=== PATIENT | female | born 1945 | race Caucasian/White ===

== ENCOUNTER 2018-09-01 16:50 | Inpatient (IN) | payer MEDICARE, MEDICAID ==
[~2018-09-01] VITALS: Ht 167.6 cm; Wt 89.1 kg
--- NOTE | ~2018-09-01 | PR ---
[place], [place] PROGRESS NOTE NAME: VIKA BANERJEE UNIT #: [id number] ROOM: 315 DOCTOR: VIVIAN ANDERSON CNP BIRTHDATE: [birth year] DOS: 09/05/2018 CHIEF COMPLAINT: "Sometimes I hear them all the time." SUMMARY OF THE VISIT: The patient was interviewed as she sat in the dining room. She was pleasant and cooperative and engaged in conversation with me. The patient reports that her appetite is good and that she has been sleeping well. She denies any visual hallucinations; however, she reports that she hears things sometimes. Staff reports that the patient continues to be paranoid and that she did have visual hallucination last evening. She is exhibiting increased paranoia as the day progressed yesterday. She did sleep last night and has been taking medications as prescribed. MENTAL STATUS EXAMINATION: The patient is alert and oriented to person and place. She was pleasant and cooperative with me. No damaris or hypomania noted. No delusions noted, some mild paranoia noted. No auditory or visual hallucinations noted at this time. The patient's mood was calm. Her affect was appropriate. PLAN: I will increase the patient's Abilify to 15 mg daily in order to hopefully improve the paranoia symptoms as well as the visual hallucinations that she was experiencing. We will monitor the patient for side effects. We will also monitor for effectiveness of the medication. We will continue to encourage the patient to participate in individual and hwite milieu activity. Continue fall and safety precautions. Plan is to return the patient to the least restrictive environment when she is considered psychiatrically stable. Vivian Anderson CNP CM:PNTRANS 1 34 VIVIAN ANDERSON CNP 09/05/182033 interface
--- NOTE | ~2018-09-01 | PR ---
[place], [place] PROGRESS NOTE NAME: VIKA BANERJEE UNIT #: [id number] ROOM: 315 DOCTOR: CATHRYN LYLE MD BIRTHDATE: [birth year] DOS: 09/03/2018 CHIEF COMPLAINT: "Morning." SUMMARY OF THE VISIT: The patient was interviewed or attempted to be interviewed while she was eating her breakfast. As I approached, she made eye contact and wished me good morning, but then she went about eating her breakfast and did not respond to any more of my questions. She was very intent on eating her breakfast and was pleasant for the most part. Nurses report some episodic behaviors, but they do seem to be trending toward improvement. There is no sedation, somnolence, extrapyramidal symptoms or tardive dyskinesia. MENTAL STATUS: She is alert and oriented to self. Mood does seem to be strongly trending towards euthymia. Affect is much more appropriate. There is no damaris or hypomania. There is no gross psychosis noted. Short term memory is very poor and her ability to process is limited. PLAN: I will go ahead and increase her Abilify from 5 to 10 mg at bedtime as it augments the effectiveness of the antidepressant and also stabilizes her mood. We will engage in individual and white milieu activity, returning to the least restrictive environment when psychiatrically stable. CATHRYN LYLE MD CM:PNTRANS [id number] CATHRYN LYLE MD 09/04/18 0049 interface
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
--- NOTE | ~2018-09-01 | PN ---
[place], [place] PROGRESS NOTE NAME: VIKA BANERJEE UNIT #: [id number] ROOM: 315 DOCTOR: CATHRYN LYLE MD BIRTHDATE: [birth year] DATE: 09/09/18 ADDENDUM: Resident note reviewed. Agree with observations, recommendations, and overall treatment plan. CATHRYN LYLE MD CM:PNTRANS 132 132 CATHRYN LYLE MD 09/29/18 1328 LUIS REYNA MIS.LLR
--- NOTE | ~2018-09-01 | PR ---
[place], [place] PROGRESS NOTE NAME: VIKA BANERJEE UNIT #: [id number] ROOM: 315 DOCTOR: CATHRYN LYLE MD BIRTHDATE: [birth year] DOS: 09/06/2018 CHIEF COMPLAINT: The patient was resting and uttered unintelligible comments to me. SUMMARY OF THE VISIT: The patient was attempted to be interviewed as she was resting quietly in bed. I attempted on multiple occasions to call out her name and ask her questions, she did not respond other than making a mumbled discussion. At no point in time did she turn to make eye contact with me. Nurses report she has been all or none, in that she will pace the unit nonstop, exit seeking at every door to the point where she wears herself out and then winds up sleeping for hours at a time. She is very fretful and anxious throughout the day and is very hard to support and redirect. MENTAL STATUS: Limited due to her overall level of somnolence this morning. PLAN: I will go ahead and add Vistaril 25 mg t.i.d. straight to see if we can get ahead of the fretfulness and anxiety. We will monitor for risk, benefits. We will continue to engage her in individual and white milieu activity, returning then to the least restrictive environment when psychiatrically stable. CATHRYN LYLE MD CM:PNTRANS [phone] CATHRYN LYLE MD 09/06/18 223 interface
--- NOTE | ~2018-09-01 | PR ---
[place], [place] PROGRESS NOTE NAME: VIKA BANERJEE UNIT #: [id number] ROOM: 315 DOCTOR: CATHRYN LYLE MD BIRTHDATE: [birth year] DOS: 09/08/2018 INTERVAL NOTE CHIEF COMPLAINT: "Oh, I would like some more eggs, please." SUMMARY OF THE VISIT: The patient was interviewed as she was finishing her breakfast. She did request more eggs and was fairly bright and pleasant. She spoke in a soft whisper, though there was no agitation or aggression. There was no mood lability noted. Nurses do report to me that she is peeling off her Exelon patches and sticking them in all sorts of places throughout the unit. There has been less exit seeking and less agitation. MENTAL STATUS: She is alert and oriented to self, unclear place, certainly not time. Mood does seem to be trending towards euthymia. Affect is more appropriate. There is no damaris, hypomania or psychosis. Short term memory continues to be problematic and she processes conversation slowly. PLAN: I will change her Exelon patch to Exelon capsules 6 mg b.i.d. Continue to engage in individual and white milieu activity, returning to the least restrictive environment when psychiatrically stable. CATHRYN LYLE MD CM:PNTRANS [phone] CATHRYN LYLE MD 09/09/18 0107 interface
--- NOTE | ~2018-09-01 | PN ---
[place], [place] PROGRESS NOTE NAME: VIKA BANERJEE UNIT #: [id number] ROOM: 315 DOCTOR: CATHRYN LYEL MD BIRTHDATE: [birth year] DATE: 09/07/18 ADDENDUM: Resident note reviewed. Agree with observations, recommendations, and overall treatment plan. CATHRYN LYLE MD CM:PNTRANS 19 26 CATHRYN LYLE MD 09/29/18 132 LUIS REYNA MIS.LLR
--- NOTE | ~2018-09-01 | PR ---
[place], [place] PROGRESS NOTE NAME: VIKA BANERJEE UNIT #: [id number] ROOM: 315 DOCTOR: VIVIAN ANDERSON CNP BIRTHDATE: [birth year] DOS: 09/04/2018 CHIEF COMPLAINT: The workplace is not good. SUMMARY OF VISIT: The patient was interviewed as she sat in the [place] in the dining room. She did engage in conversation with me; however, her speech is mostly nonsensical. Staff reports that she did sleep well last night; however, she has been showing some paranoia and has been protective of staff and displaying that she is afraid of men. The patient denies feeling worried or anxious. MENTAL STATUS EXAMINATION: The patient is alert and oriented to self. She was pleasant and cooperative with me. No damaris or hypomania noted. No delusions noted. The patient does seem somewhat paranoid. There are no auditory or visual hallucinations noted. The patient's mood somewhat anxious. Affect congruent with mood. PLAN: The patient's Abilify was just increased to 10 mg at bedtime. We will continue to monitor the patient today for effectiveness of the increase in Abilify and to monitor that the patient tolerates without side effects. We continued to encourage the patient to engage in individual and white milieu activity. Continue fall and safety precautions. Plan will be to return the patient to the least restrictive environment once she is considered psychiatrically stable. Vivian Anderson CNP CM:PNTRANS [id number] VIVIAN ANDERSON CNP 09/04/18 1626 interface
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
[2018-09-01] MEDS ORDERED: ASPIRIN CHEWABL81 MG PO (16:58)
[2018-09-01] MEDS ORDERED: CALCI-CHEW500 MG PO (17:00)
[2018-09-01] MEDS ORDERED: COZAAR100 MG PO (17:01)
[2018-09-01] MEDS ORDERED: NAMENDA XR28 M1 PO (17:02)
[2018-09-01] MEDS ORDERED: REMERON15 M2 PO (17:03)
[2018-09-01] MEDS ORDERED: NIACIN500 M5 PO (17:03)
[2018-09-01] MEDS ORDERED: RISPERDAL0.5 MG PO (17:04)
[2018-09-01] MEDS ORDERED: RISPERDAL1 M1 PO (17:05)
[2018-09-01] MEDS ORDERED: [UNRECOGNIZED DRUG - OTHER] PO (17:07)
[2018-09-01] MEDS ORDERED: VITAMIN D50000 UNIT PO (17:09)
[2018-09-01] MEDS ORDERED: VITAMIN B121000 MC1 IM (17:11)
[2018-09-01] MEDS ORDERED: RIVASTIGMINE TAR6 M1 PO (17:12)
[2018-09-01] MEDS ORDERED: ATIVAN1 MG PO (17:12)
[2018-09-01] MEDS ORDERED: CHLORASEPTIC S1 EACH PO (17:16)
[2018-09-01] MEDS ORDERED: DULCOLAX STOOL100 M1 PO (17:18)
[2018-09-01] MEDS ORDERED: IMODIUM A-D2 M2 PO (17:19)
[2018-09-01] MEDS ORDERED: MIRALAX POWDER17 G1 PO (17:20)
[2018-09-01] MEDS ORDERED: ROBITUSSIN DM 101 OZ PO (17:22)
[2018-09-01] MEDS ORDERED: PUROXCIN 4%-1%1 EACH T (17:22)
[2018-09-01 19:33] VITALS: BP 142/63
--- NOTE | 2018-09-01 19:33 | NUR ---
VIKA BANERJEE a 73 year old F admitted via stretcher from the ADMITTING as a voluntary admission. Arrived on unit at 1933. ALLERGIES: BACTRIM AND PNEUMOVAX. Vital signs are: 97.7-67-16 142/63. The POA gave verbal consent for the following forms with stated understanding: Authorization For The Release of Medical Information, Clothing List, Consent to Voluntary Admission and Hospitalization, Consent and Release Forms/Receipt of Rights, Acknowledgement of Advance Directive Information, Behavioral Health Consent Form, and Informed Consent of Medications. Admitted under the services of Dr. DARIELA CALERO,[facility]. A search was conducted and hazardous articles were removed. Client was oriented to the unit. GERMAIN KING
--- NOTE | 2018-09-01 19:50 | NUR ---
Called and notified Dr. Apple regarding patient's admission to floor and the consult for medical management. He said to place the consult under Dr. Juarez.
--- NOTE | 2018-09-01 20:45 | NUR ---
Dr. Kulkarni on floor to assess patient.
--- NOTE | 2018-09-01 21:00 | NUR ---
Dr. Kulkarni assessed patient's skin with nurse present. No new orders received.
--- NOTE | 2018-09-01 21:48 | NUR ---
Called and notified Cayla,Tax Associate,of admission.
--- NOTE | 2018-09-02 03:42 | NUR ---
24 HR chart check completed.
--- NOTE | 2018-09-02 05:12 | NUR ---
Patient slept approx. 2 hours throughout shift. Q 15 minute safety checks continued and maintained.
[2018-09-02 07:14] LABS: BASO % 0.4 % (0.0-1.0); EOS # 0.2 10*3/uL (0.0-0.4); HEMATOCRIT 44.3 % (37.0-47.0); HEMOGLOBIN 14.4 g/dl (12.0-16.0); LYMPH # 1.8 10*3/uL (1.3-4.4); LYMPH % 21.1 % (27.0-41.0); MEAN CELL VOLUME 85.7 fl (81.0-99.0); MEAN CORPUSCULAR HGB 27.9 pg (27.0-31.0); MEAN CORPUSCULAR HGB CONC 32.5 g/dl (33.0-37.0); MEAN PLATELET VOLUME 12.2 fl (9.6-12.3); MONO # 0.6 10*3/uL (0.1-1.0); MONO % 7.5 % (3.0-9.0); NEUT # 5.9 10*3/uL (2.3-7.9); NEUT % 68.8 % (47.0-73.0); PLATELET COUNT AUTOMATED 131 10*3/uL (130-400); RED BLOOD COUNT 5.17 10*6/uL (4.10-5.10); RED CELL DISTRI WIDTH 12.8 % (0-14.5); WHITE BLOOD COUNT 8.6 10*3/uL (4.8-10.8)
[2018-09-02 07:25] LABS: ALBUMIN 3.6 gm/dl (3.1-4.5); ALKALINE PHOSPHATASE 73 U/L (45-117); BUN 29 mg/dl (7-24); CHLORIDE 109 mmol/L (98-107); CHOLESTEROL 212 mg/dL (<200); CREATININE 0.93 mg/dL (0.55-1.02); HDL CHOLESTEROL 54 mg/dl (40-60); LDL CHOLESTEROL 131 mg/dL (9-159); POTASSIUM 3.9 mmol/L (3.5-5.1); SGOT/AST 38 IU/L (3-35); SGPT/ALT 48 U/L (12-78); SODIUM 141 mmol/L (136-145); TOTAL PROTEIN 7.7 gm/dL (6.4-8.2); TRIGLYCERIDES 136 mg/dl (<150); VLDL CHOLESTEROL 27 mg/dL (6-40)
--- NOTE | 2018-09-02 07:47 | NUR ---
PT AWAKE, ALERT, RESPS EASY AND EVEN ON ROOM AIR. EATING BREAKFAST IN DINING ROOM WITH PEERS AT THIS TIME. NO BEHAVIORS NOTED AT THIS TIME. NO DISTRESS. Q15 MIN MONITORING CONTINUES.
[2018-09-02] MEDS ORDERED: TYLENOL325 M1 PO (08:08)
[2018-09-02 08:27] VITALS: BP 126/55; BP 128/62
--- NOTE | 2018-09-02 08:38 | NUR ---
ON UNIT TO SEE PT AT THIS TIME, UPDATE GIVEN. MADE AWARE HOME MEDS RISPERDAL AND REMERON HAVE NOT BEEN ADDRESSED. STATES HE WILL REVIEW MEDS.
[2018-09-02 08:43] LABS: VITAMIN D, 25-HYDROXY 33.5 ng/mL (30-100)
--- NOTE | 2018-09-02 10:28 | NUR ---
AND ON UNIT TO SEE PT AT THIS TIME.
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
--- NOTE | 2018-09-02 14:04 | NUR ---
URINALYSIS OBTAINED VIA CLEAN CATCH. LABELED PER POLICY AND SENT TO LAB VIA PHARMACY TUBE SYSTEM.
[2018-09-02 14:11] LABS: BILIRUBIN NEGATIVE (NEGATIVE); BLOOD 1+ (NEGATIVE); CLARITY SL CLOUDY (CLEAR); COLOR YELLOW (YELLOW); GLUCOSE NEGATIVE (NEGATIVE); KETONE NEGATIVE (NEGATIVE); LEUKO ESTERASE 3+ (NEGATIVE); NITRITE NEGATIVE (NEGATIVE); PH 8.5 (5.0-9.0)
[2018-09-02 14:20] LABS: BACTERIA 3+; WBC 21-30 wbc/hpf (0-5)
--- NOTE | 2018-09-02 15:01 | NUR ---
NOTIFIED OF URINALYSIS RESULTS AND FOUL ODOR NOTED TO URINE.
--- NOTE | 2018-09-02 15:58 | NUR ---
Shift chart check completed.
[2018-09-02 19:56] VITALS: BP 112/59
--- NOTE | 2018-09-02 21:10 | NUR ---
Patient alert and oriented to person only with confusion. ST/LT memory deficits noted. No signs of any response to internal stimuli noted at this time. Patient is compliant with medications without any difficulty. Patient is restless. Patient moved from [place] to Merry walker and is now moving up and down hallway and appears calmer now. Attempted to redirect/reorient when appropriate but with some difficulty. Plan to encourage medication compliance. Also continue redirect/reorient when needed/appropriate. Q 15 minute safety checks continued and maintained. See [facility] flowsheet for further documentation.
--- NOTE | 2018-09-03 00:08 | NUR ---
24 HR chart check completed.
--- NOTE | 2018-09-03 05:39 | NUR ---
Patient slept approx. 7 hurs throughout shift. Q 15 minute safety checks continued and maintained.
[2018-09-03 07:50] VITALS: BP 100/65
--- NOTE | 2018-09-03 08:30 | NUR ---
Treatment Plan meeting with Dr. Son RN, AT, SW and Utility Lineman. Plan for discharge next week. Pt. current resident of [facility]. Will reach out to facility today to discuss discharge Planning.
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
--- NOTE | 2018-09-03 09:30 | NUR ---
Elida was evaluated by occupational therapy on 09/03/18. She requries assist with upper and lower body ADL's and increased time to process directions. Elida requried assist with some ADL's prior to hospital admit but was able to complete self-feeding and grooming activities. Continue with occupational therapy to address bilateral ue strength, balance, and endurance to improve the patient's ADL skills. WHen patient is to be D/C, ECF is recommended. Arin Perez OTR/Cris
--- NOTE | 2018-09-03 10:47 | NUR ---
Spoke with Pretty at [facility]. Pt. is [facility] at facility and does not require precert prior to return. Pt. will return to [facility] at Discharge.
--- NOTE | 2018-09-03 11:00 | NUR ---
DR. EDEN ON UNIT TO ASSESS PATIENT.
--- NOTE | 2018-09-03 11:01 | NUR ---
Phoned pt's son/DPOAHC Huma Goldberg and offered to schedule a family meeting. Huma stated that he would discuss this with his family. Await a return call.
--- NOTE | 2018-09-03 11:40 | NUR ---
AM GROUP PT WAS PRESENT FOR MORNING GROUP SITTING IN THE [facility]. PT WAS PREOCCUPIED WITH THE STRAPS FOR A LONG TIME BUT BEGAN YELLING OUT A NAME. PT WANTED TO LEAVE THE ROOM AND ONCE IN THE WILLETT WAS CONTENT TO PROPEL HERSELF UP AND DOWN THE WILLETT. PT EXHIBITED NO AGITATION OR AGGRESSION
--- NOTE | 2018-09-03 14:22 | NUR ---
Clinical Updates faxed to Ayana Mendenhall at [facility].
--- NOTE | 2018-09-03 14:39 | NUR ---
PATIENT COMPLAINTOF RIGHT LEG PAIN, UNABLE TO RATE PAIN, HAS FACIAL GRIMACING. PRN TYLENOL 650MG PO AT THIS TIME.
--- NOTE | 2018-09-03 15:23 | NUR ---
P: VISUAL HALLUCINATIONS AND PARANOID. PATIENT HAS WORRIED LOOK ON FACE, TALKING ABOUT THE CHILDREN. SITTING IN MERRIWALKER AT NURSES STATION DOOR, PEEKING OVER, CALLING NURSE OVER. PATIENT PROVIDED WITH SNACK BUT WOULD NOT COME OVER TO NURSE IN HALLWAY. I: ONE ON ONE, REDIRECTION, INFORMED PATIENT SHE WAS SAFE. TOILETING AND PROVIDED WITH SNACK. PATIENT SITTING WITH STAFF IN HALLWAY. R: AFTER SNACK PROVIDED PATTIENT CALMED DOWN. PATIENT IS ALERT AND ORIENTED TO SELF WITH CONFUSION; LO9NG/SHORT TERM MEMORY DEFICITS NOTED. MOOD IS IRRITABLE AND ANXIOUS. RESPONDING TO INTERNAL STIMULI; 1 PERSON ASSIST WITH ACTIVITIES OF DAILY LIVING, INCONTINENT OF BOWEL AND BLADDER. SET UPFOR MEALS, INTAKES ARE FAIR WITH ADEQUATE FLUIDS. UP IN MERRIWALKER. Q 15 MINUTE SAFETY CHECKS MAINTAINED. MEDICATION COMPLIANT. NO VERBAL OR PHYSICAL AGGRESSION OBSERVED. P: CONTINUE TO MONITOR FOR AGGRESSION, HALLUCINATION AND PARANOIA; PROVIDE ONE ON ONE AND REDIRECTION NEEDED.
--- NOTE | 2018-09-03 15:31 | NUR ---
PM GROUP MADE SEVERAL ATTEMPTS TO INVOLVE PT IN AFTERNOON GROUP THERAPY BUT PT WAS NOT INTERESTED. PT IS VERY CONFUSED AND PROPELS SELF AROUND UNIT IN [facility]. PT EXHIBITED NO AGGRESSION OR AGITATION WITH INTERACTION
[2018-09-03 19:59] VITALS: BP 100/62
--- NOTE | 2018-09-03 21:43 | NUR ---
Patient alert and oriented to person only with confusion. ST/LT memory deficits noted. No signs of any response to internal stimuli noted at this time. Patient is compliant with medications without any difficulty. Patient is paranoid and states " I am scared someone is going to come in and hurt me." Told patient that this is a locked unit and no one can come in without staff letting them in. Told patient she is safe. Told patient to deep breath to help with anxiousness. Patient deep breathing and is starting to calm down. Patient in Merry walker in hallway sitting with staff. Attempted to redirect/reorient when appropriate but with some difficulty. Plan to encourage medication compliance. Continue to provide 1:1 for emotional support. Also continue redirect/reorient when needed/appropriate. Q 15 minute safety checks continued and maintained. See [facility] flowsheet for further documentation.
--- NOTE | 2018-09-04 00:08 | NUR ---
24 HR chart check completed.
--- NOTE | 2018-09-04 05:29 | NUR ---
Patient slept approx. 7 hours throughout shift. Q 15 minute safety checks continued and maintained.
[2018-09-04 07:28] VITALS: BP 107/61
--- NOTE | 2018-09-04 08:03 | NUR ---
JHONATHAN PARK ON UNIT TO ASSESS PT
--- NOTE | 2018-09-04 09:12 | NUR ---
ATENOLOL HELD DUE TO DECREASED BP 107/61. DR EDEN UPDATED.
--- NOTE | 2018-09-04 10:17 | NUR ---
DR. EDEN ON UNIT TO ASSESS PT, UPDATE PROVIDED.
--- NOTE | 2018-09-04 16:48 | NUR ---
P: CONFUSION. ALERT TO PERSON ONLY I: ENCOURAGED MEDICATION COMPLIANCE, PROVIDED 1:1 FOR THERAPEUTIC COMMUNICATION, MONITORED BEHAVIORS WITH Q15 MINUTE SAFETY CHECKS. AMBULATED PT R: MEDICATION COMPLIANT. PT NOT VERBAL THIS SHIFT. STEADY GAIT. WALKS FAST. P: CONTINUE TO MONITOR BEHAVIORS WITH Q15 MINUTE SAFETY CHECKS, CONTINUE TO ENCOURAGE MEDICATION COMPLIANCE AND PROVIDE 1:1 FOR THERAPEUTIC COMMUNICATION. SEE [facility] FLOWSHEET FOR SPECIFIC MONITORING.
[2018-09-04 18:47] VITALS: BP 150/72
--- NOTE | 2018-09-04 22:09 | NUR ---
P-CONFUSION, PARANOIA. PATIENT ALERT WITH CONFUSION. PATIENT WITH SHORT TERM AND WARDROBE ATTENDANT MEMORY DEFICITS. PATIENT WITH NO RESPIRATORY DISTRESS. PATIENT WITH NO SUICIDAL OR HOMICIDAL IDEATIONS. PATIENT WITH NO HALLUCINATIONS, BUT WITH PARANOID DELUSIONS. PATIENT STATING TO THIS NURSE "THAT GIRL RIGHT THERE IS OUT TO GET ME". I-REDIRECTION WITH 1:1 THERAPEUTIC INTERVENTIONS AND PRESENT REALITY. EDUCATE AND ENCOURAGE MEDICATION COMPLIANCE R-PATIENT MEDICATION COMPLIANT AT THIS TIME. PATIENT WITH THERAPEUTIC AND DISTRACTION INTERVENTIONS PROVIDED AT HS WITH EFFECTIVE RESULTS. PATIENT WITH NONSENSICAL SPEECH AND WITH FLIGHT OF IDEAS. PATIENT CONVERSATIONS INAPPROPRIATE TO CONTENT THROUGHOUT SHIFT. PATIENT AMBULATING ON UNIT WITH SLOW, STEADY GAIT. PATIENT PROVIDED NOURISHMENT, FLUIDS, AND TOILETING THROUGHOUT SHIFT. PATIENT CONTINUES ANTIBIOTIC THERAPY FOR +UTI. NO ADVERSE REACTION. NO COMPLAINTS OF DYSURIA. P-CONTINUE TO ENCOURAGE MEDICATION COMPLIANCE, CONTINUE TO PRESENT REALITY, ENCOURAGE GROUP THERAPY WHILE AWAKE
--- NOTE | 2018-09-05 00:11 | NUR ---
24 HR chart check completed.
[2018-09-05 07:38] VITALS: BP 116/68
--- NOTE | 2018-09-05 10:28 | NUR ---
DR. EDEN ON UNIT TO ASSESS PT, UPDATE PROVIDED.
--- NOTE | 2018-09-05 11:30 | NUR ---
PT ATTEMPTED TO FOLLOW THIS NURSE OUT THE MAIN DOOR. PT REDIRECTED EFFECTIVELY. PT THEN ATTEMPTED TO FOLLOW THE GROOVER OPERATOR INTO A LOCKED ROOM. PT WAS EFFECTIVELY REDIRECTED AT THIS TIME WELL. PT AMBULATING DOWN THE WILLETT FAST AND REDIRECTED TO SLOW DOWN. WILL CONTINUE TO MONITOR PT BEHAVIORS.
--- NOTE | 2018-09-05 14:00 | NUR ---
PT REDIRECTED AWAY FROM OTHER PTS. PT GETTING VERY CLOSE TO OTHER PTS FACES AND GRABBING OTHER PTS THEY WALK BY. PT REDIRECTED AND INEFFECTIVE. PT PLACED IN A KRISHNA CHAIR AT THIS TIME IN VIEW OF NURSES STATION.
--- NOTE | 2018-09-05 15:04 | NUR ---
SPOKE WITH VIVIAN DANIEL, NOTIFIED OF PT PARANOIA AND INCREASED ANXIETY AND AGITATION. VERBAL ORDERS RECEIVED FOR VISTARIL 25 MG TID PO PRN.
--- NOTE | 2018-09-05 15:24 | NUR ---
PT CONTINUES TO HAVE INCREASED ANXIETY. ALL NONPHARMACOLOGICAL INTERVENTIONS INEFFECTIVE. 1:1, LOW STIMULS ENVIRONMENT, AND SNACK/DRINK PROVIDED. PRN VISTARIL GIVEN AT THIS TIME.
--- NOTE | 2018-09-05 17:44 | NUR ---
P: CONFUSION. ALERT TO PERSON ONLY I: ENCOURAGED MEDICATION COMPLIANCE, PROVIDED 1:1 FOR THERAPEUTIC COMMUNICATION, MONITORED BEHAVIORS WITH Q15 MINUTE SAFETY CHECKS. AMBULATED PT R: MEDICATION COMPLIANT. PT NOT VERBAL THIS SHIFT. STEADY GAIT. WALKS FAST. P: CONTINUE TO MONITOR BEHAVIORS WITH Q15 MINUTE SAFETY CHECKS, CONTINUE TO ENCOURAGE MEDICATION COMPLIANCE AND PROVIDE 1:1 FOR THERAPEUTIC COMMUNICATION. SEE [facility] FLOWSHEET FOR SPECIFIC MONITORING.
[2018-09-05 19:59] VITALS: BP 127/57
--- NOTE | 2018-09-05 23:47 | NUR ---
P-CONFUSION, PARANOIA. PATIENT ALERT WITH CONFUSION. PATIENT WITH SHORT TERM AND CONSTRUCTION PROJECT MGR MEMORY DEFICITS. PATIENT WITH NO RESPIRATORY DISTRESS. PATIENT WITH NO SUICIDAL OR HOMICIDAL IDEATIONS. PATIENT WITH NO HALLUCINATIONS, BUT WITH PARANOID DELUSIONS. PATIENT WHISPERING TO THIS NURSE "THEY MAY DO SOMETHING TO MY HAIR". PATIENT UNABLE TO INFORM NURSE WHO SHE IS REFERRING TO "THEY". I-REDIRECTION WITH 1:1 THERAPEUTIC INTERVENTIONS AND PRESENT REALITY. EDUCATE AND ENCOURAGE MEDICATION COMPLIANCE R-PATIENT MEDICATION COMPLIANT AT THIS TIME. PATIENT WITH THERAPEUTIC AND DISTRACTION INTERVENTIONS PROVIDED AT WITH EFFECTIVE RESULTS. PATIENT WITH NONSENSICAL SPEECH AND WITH FLIGHT OF IDEAS. PATIENT CONVERSATIONS INAPPROPRIATE TO CONTENT THROUGHOUT SHIFT. PATIENT AMBULATING ON UNIT WITH SLOW, STEADY GAIT. PATIENT WITH REST PERIODS IN CHAIR. PATIENT PROVIDED NOURISHMENT, FLUIDS, AND TOILETING THROUGHOUT SHIFT. PATIENT CONTINUES ANTIBIOTIC THERAPY FOR +UTI. NO ADVERSE REACTION. NO COMPLAINTS OF DYSURIA. P-CONTINUE TO ENCOURAGE MEDICATION COMPLIANCE, CONTINUE TO PRESENT REALITY, ENCOURAGE GROUP THERAPY WHILE AWAKE
--- NOTE | 2018-09-06 01:17 | NUR ---
24 HR chart check completed.
--- NOTE | 2018-09-06 06:10 | NUR ---
PATIENT SLEPT 4 HOURS OF INTERRUPTED SLEEP THROUGHOUT SHIFT. Q 15 MINUTE CHECKS MAINTAINED
--- NOTE | 2018-09-06 07:27 | NUR ---
OT NOTE Attempted to see pt this A.M. for OT session and upon arrival pt was supine in bed. Pt was unable to arouse at this time. Will check back at a later time/date and continue with POC as able. MELE Shi/Cris
[2018-09-06 07:49] VITALS: BP 130/64
--- NOTE | 2018-09-06 08:00 | NUR ---
Treatment Plan meeting with Dr. Son, RN, AT, SW and Inspector Repairer Sandstone. Plan for discharge at the end of the week. Pt. will return to [facility].
--- NOTE | 2018-09-06 08:20 | NUR ---
PHYSICAL THERAPY Patient seen this am for therapy visit and was sitting up in Nubia chair in front of nursing station upon therapist arrival. Patient reports no c/o's pain and agreed to take a walk with this therapist. Several U staff were present this morning for observation only during CORNER BLOCK CUTTER visit as patient transfers sit to stand with Min A x 1. Patient ambulates COKE WHEELER/MIN, 30'x 2, demonstrating very slow, unsteady gait pattern. Patient received v/c for increased stride and was very cautious during 180 turns. Patient returned to Nubia chair and remained in activity room with body alarm for safety, under [facility] staff Supervision. Will continue per POC as tolerated, total treatment time 16 minutes. Derrell Segura, CORNER BLOCK CUTTER
--- NOTE | 2018-09-06 09:52 | NUR ---
Spoke with Dianna at [facility]. Notified of plans to discharge at the end of the week. Clinical Updates faxed to [facility].
--- NOTE | 2018-09-06 11:39 | NUR ---
AM GROUP NO AM GROUP THERAPY DUE TO NEW PATIENT ASSESSMENTS.
--- NOTE | 2018-09-06 11:47 | NUR ---
P: PT RESTLES, ANXIOUS AT TIMES. PT PARANOID AT TIMES. CONFUSION AND SHORT TERM MEMORY DEFICITS NOTED. I: PT ALERT TO PERSON ONLY, PROVIDED REORIENTATION. STAFF PROVIDED EMOTIONAL SUPPORT AND 1:! FOR PT TO VOICE FEELINGS. PT MED COMPLIANT WITHOUT DIFFICULTY, UNABLE TO PROVIDE MED EDUCATION D/T COGNITION. PT UP TO GERICHAIR AT THIS TIME D/T UNSTEADY GAIT. PT WILL AMBULATE THROUGHOUT UNIT, GAIT FAST AND STEADY. STAFF PROVIDED REASSURANCE OF SAFETY. R: PT CONTINUES TO BE ANXIOUS AND PARANOID AT TIMES. PT CALM. P: CONTINUE TO MONITOR PT BEHAVIORS ON Q15 MIN SAFETY CEHCKS, CONTINUE TO PROVIDE REASSURANCE OF SAFETY, ENCOURAGE MED COMPLIANCE, PROVIDE EMOTIONAL SUPPORT AND 1:1 FOR PT TO VOICE FEELINGS.
--- NOTE | 2018-09-06 12:49 | NUR ---
DR. Breanne HELTON ON UNIT TO ASSESS PT, UPDATE PROVIDED.
--- NOTE | 2018-09-06 15:40 | NUR ---
PM GROUP/LEISURE INTERESTS PT ATTENDED GROUP AND PARTICIPATED FOR A SHORT TIME COLORING. PT SPEECH IS NONSENSICAL AND ATTEMPTED TO CARRY ON A CONVERSATION WITH ME. PT WOULD BURST INTO TEARS AND CLING TO ME STATING, "I LOVE YOU" PT EXHIBITED NO AGITATION OR AGGRESSION DURING GROUP AND RESPONDED WELL TO BEING TOLD, "YOU ARE OKAY" AND "NO ONE WILL HURT YOU HERE"
[2018-09-06 20:00] VITALS: BP 132/60
--- NOTE | 2018-09-06 22:57 | NUR ---
P---RESTLESS, INTRUSIVE, INTERACTIVE AT TIMES. DEMENTIA I--DISCUSSED PERSONAL SPACE, REVIEWED MEDICATIONS R--OH THEY NEED MY HELP. THANK YOU (AFTER TAKING MEDICATIONS) P--MONITOR FOR CHANGES IN BEHAVIOR AND MOTIONS. MONITOR Q 15 MINUTES AND PRN
--- NOTE | 2018-09-07 06:29 | NUR ---
24 HR chart check completed.
[2018-09-07 07:32] VITALS: BP 130/60
--- NOTE | 2018-09-07 07:35 | NUR ---
OT NOTE Pt was seen this A.M. 1:1 for 15 minute OT session with nursing staff present for observation only. Upon arrival pt was supine in bed. Pt identified by name and and had no complaints at this time. Pt transferred supine to sit EOB with modA for assist with UB. Pt then completed sit to stand transfer from bed level with Pierre. Then challenged pt's static standing tolerance needed for increased I in self care tasks and functional transfers. Pt was able to tolerate aprox 30-45 seconds before sitting due to quick onset of fatigue. Then challenged pt's dynamic standing balance needed for enhanced safety. While weight shifting, crossing midline, and reaching over all planes pt was able to maintain F- standing balance requiring Pierre for UE support. Pt declined any grooming tasks at this time stating she already did them today. Pt was left sitting upright in denice chair in the quiet room (per pt's request) with body alarm on for safety and under U staff supervision. Continue with rec D/C plan to ECF. MELE Shi/Cris
--- NOTE | 2018-09-07 08:00 | NUR ---
Treatment Plan meeting with Dr. Son, RN, AT, SW and Restrictive Preparation Operator. Plan for discharge at the end of the week. Pt. will return to [facility].
--- NOTE | 2018-09-07 10:00 | NUR ---
P: ROCKING IN CHAIR, RUBBING ARMS, REPORTS "YES" FEELING ANXIOUS. I: ONE ON ONE, REDIRECTION AND CHANGE OF ENVIRONMENT; PARTICIPATED IN THERAPY. R: EFFECTIVE; PATIENT PARTICIPATED IN THERAPY SESSION ABLE TO FOLLOW DIRECTION, CHANGE OF ENVIRONMENT EFFECTIVE. PATIENT IS ALERT AND ORIENTED TO PERSON ONLY WITH CONFUSION; DENIES HI/SI; MEDICATED WITH TYLENOL 650MG PO FOR BACK PAIN AND EFFECTIVE. NO RESPONSE TO INTERNAL STIMULI. NON SENSICAL SPEECH THROUGHOUT THE DAY BUT IS ABLE TO ANSWER TO SIMPLE DIRECTION. MEDICATION COMPLAINT. Q 15 MINUTE SAFETY CHECKS MAINTAINED. NO AGGRESSION OBSERVED. P: CONTINUE TO MONITOR FOR AGGRESSION; PROVIDE ONE ON ONE, REDIRECTION/ORIENTATION NEEDED.
--- NOTE | 2018-09-07 11:43 | NUR ---
AM GROUP THERAPY PT ATTENDED GROUP AND PARTICIPATED BY WORKING ON A JIGSAW PUZZLE WITH THE NURSING STUDENTS. PT EXHIBITED NO AGITATION OR AGGRESSION DURING GROUP.
--- NOTE | 2018-09-07 13:00 | NUR ---
DR. SMITH ON UNIT TO ASSESS PATIENT.
--- NOTE | 2018-09-07 13:26 | NUR ---
PHYSICAL THERAPY Patient gives informed consent for treatment. Patient was identified by name and . Patient was sitting in activity room with Chuckieu present sitting with patient. Patient transferred sit to stand from low chair with SBA. Patient ambulated with Hand Held assistance for 300' x 1 with no LOB or other difficulty. Patient then sat in chair in activity room with PCT present and performed sitting bilateral LE ther ex x 10 reps each in LAQs, marches, and heel raises. Patient then came down the ellison a short while later and wanted to walk again. Patient ambulated POLICE LIEUTENANT PRECINCT X 1 for 100' x 1 with no LOB. Patient was left in chair in activity room with PCT present and other staff and patients present also. Patient was 1:1 with this PACKING LINE OPERATOR for 16 minutes total. DERRICK HILL PACKING LINE OPERATOR
--- NOTE | 2018-09-07 15:39 | NUR ---
PM GROUP/MANICURES AND MUSIC PT ATTENDED GROUP AND PARTICIPATED BY SITTING AND SOCIALIZING WITH STAFF AND PEERS. PT IS PLEASANTLY CONFUSED AND SPEAKS NONSENSICALLY. PT EXHIBITS NO AGGRESSIVE OR AGITATED BEHAVIORS DURING GROUP
--- NOTE | 2018-09-07 15:42 | NUR ---
Pt was pleasantly confused when interacting with this scenario writer today. Pt attempts to engage in conversation but her sentences are nonsensical.
--- NOTE | 2018-09-08 03:41 | NUR ---
24 HR chart check completed.
--- NOTE | 2018-09-08 05:51 | NUR ---
SLEPT WELL WITH ONE INTERUPTIONS PAS [id number]
--- NOTE | 2018-09-08 07:30 | NUR ---
PHYSICAL THERAPY Patient seen this am for therapy visit and was supine in bed upon therapist arrival. OT nurse practitioner physicians assistant and OT student were both present during WATER FILTERER HELPER visit this morning as patient transfers supine to sit EOB with MIN A x 1. Patient performed sit to stand transfer, SBA and ambulates SBA ad ese in room, demonstrating very slow, cautious gait pattern, 20'x 1. Patient completed multiple 180/360 degree turns, including backward walk 5'x 2, demonstrating several bouts of unsteady step sequence, but no major LOB. Patient ambulated additional 50'x [address] and declined offer for breakfast. Patient insisted on returning to supine in bed and remained with bed alarm activated under U staff Supervision. Will continue per POC as tolerated, total treatment time 16 minutes. Derrell Segura, WATER FILTERER HELPER
--- NOTE | 2018-09-08 07:45 | NUR ---
OT NOTE Pt was seen this A.M. 1:1 for 20 minute OT session with AVIONICS REPAIR TECHNICIAN and nursing staff present for observation only. Upon arrival pt was supine in bed. Pt identified by name and and had no complaints at this time. Pt transferred supine to sit EOB with Pierre for assist with UB. Sit to stand completed from bed level with Pierre followed by functional mobility into the bathroom with Pierre FOOD SERVICE REPRESENTATIVE. There she transferred on/off standard commode with CGA and use of grab bar for UE support. Pt then stood sink side while washing her hands and face with Pierre for assist with proper sequencing and managing water, soap, and towels. Challneged pt's static standing tolerance needed for increased I in self care tasks and functional transfers. Pt was able to tolerate aprox 10 minutes at a time before sitting due to fatigue. Pt declined to go to the dining room for breakfast resulting in pt transferring back into bed sit to supine with SBA. There she was left with bed alarm on for safety and U staff notified. Continue with rec D/C plan to ECF. MELE Shi/Cris
[2018-09-08 08:00] VITALS: BP 114/67
--- NOTE | 2018-09-08 08:00 | NUR ---
Treatment Plan meeting with Dr. Son RN, AT, SW and Detective Captain. Plan for discharge Thursday if Stable, possible discharge Thursday. Pt. will return to [facility].
--- NOTE | 2018-09-08 11:55 | NUR ---
AM GROUP/MUSIC AND GAMES PT ATTENDED GROUP AND PARTICIPATED BY WORKING A JIGSAW PUZZLE WITH A PEER. PT WAS CALM AND PLEASANTLY CONFUSED UNTIL PEER WAS YELLING AND BANGING.
--- NOTE | 2018-09-08 13:24 | NUR ---
PT BECOMING INCREASINGLY CONFUSED AND RESTLESS. PT FOLLOWING THIS NURSE AROUND T/O HALLS AND IN AND OUT OF ROOMS. PT HAS BEEN REDIRECTED, ATTEMPTED TO DIVERT, ENCOURAGED TO SIT DOWN FOR REST PERIODS. PT IS NONSENSICAL, VERBAL RESPONSES NOT OFTEN APPROPRIATE TO CONTENT. ST/LT MEMORY DEFICITS APPARENT. PT IS ORIENTED TO PERSON ONLY. PT APPEARS VERY TIRED. PT ENCOURAGED TO REST IN CHAIR IN QUIET ROOM. NO OVERT S/S OF ATTENDING TO INTERNAL STIMULI. WILL CONTINUE TO REORIENT PT TO PLACE, TIME, AND SITUATION. WILL CONTINUE TO ENCOURAGE PT TO TAKE REST PERIODS. WILL REDIRECT NEEDED. WILL PROVIDE 1:1 FOR EMOTIONAL SUPPORT NEEDED. Q 15 MIN MONITORING PER POLICY FOR SAFETY.
--- NOTE | 2018-09-08 15:49 | NUR ---
PM GROUP/[employer] GAMES PT WAS IN AND OUT OF THE DAYROOM AND IS UNABLE TO PARTICIPATE IN GROUP AT THIS TIME DUE TO HIGH LEVEL OF CONFUSION. PT KEPT TALKING TO ME BUT HER SENTENCES WERE NONSENSICAL.
--- NOTE | 2018-09-08 15:54 | NUR ---
Pt ambulating in ellison quite often today. Pt is asking for Aydee or Sharmila. Pt is accepting when told that Aydee and Sharmila are not here.
[2018-09-08 19:50] VITALS: BP 112/65
--- NOTE | 2018-09-09 01:31 | NUR ---
P- ALERT TO PERSON ONLY WITH CONFUSION NOTED. ST/LT MEMORY DEFICITS NOTED. WANDERING INTO OTHER PT'S ROOM. I- REORIENT PT FREQUENTLY WHEN CONFUSION IS NOTED. REDIRECT PT INTO THE CORRECT ROOM. PROVIDE MEDICATIONS ON TIME WITH EDUCATION ON EACH. ASSESS MOOD, ORIENTATION, SI/HI, HALLUCINATIONS, DELUSIONS, OR PAIN. STEP BY STEP INSTRUCTION WITH ADLS/CARE AND SIMPLE TASKS PROVIDED. R- REORIENTATION EFFECTIVE FOR A SHORT PERIOD OF TIME AND PT GOES BACK TO BEING AT BASELINE CONFUSED. WITH REDIRECTION, PT GETS CONFUSED AND STEP BY STEP IS NEEDED. PT'S MOOD STABLE WILL GET IRRITABLE WHEN TRYING TO REDIRECT. PT WAS GOING TO EAT SNACK AND GOT CONFUSED ON WHERE TO SIT AND BEGAN WALKING OUT OF THE ROOM, WHEN TRYING TO REDIRECT PT GOT IRRITABLE. STEP BY STEP INSTRUCTION NEEDED WITH SIMPLE TASKS SUCH GETTING INTO BED, GOING TO THE RESTROOM, SITTING DOWN IN DINING ROOM CHAIR. NO S/S OF INTERACTING WITH INTERNAL STIMULI. NO DELUSIONAL THOUGHT PROCESS NOTED. DENIES SI/HI, HALLUCINATIONS, OR PAIN. GAIT STEADY WHILE AMBULATING. RESPIRATIONS EVEN AND UNLABORED ON ROOM AIR. MED COMPLIANT WITH NO DIFFICULTIES. INTERACTIVE. P- REORIENT PT FREQUENTLY WHEN CONFUSION IS NOTED. REDIRECT AND USE STEP BY STEP INSTRUCTION WITH CARE/ADLS AND SIMPLE TASKS FREQUENTLY. ASSESS MOOD, ORIENTATION, SI/HI, HALLUCINATIONS, DELUSIONS, OR PAIN EVERY SHIFT. PROVIDE MEDICATIONS ON TIME WITH EDUCATION ON EACH. FALLING STAR PROGRAM MAINTAINED. Q15 MINUTE CHECKS MAINTAINED FOR SAFETY.
--- NOTE | 2018-09-09 03:14 | NUR ---
24 HR chart check completed.
--- NOTE | 2018-09-09 06:41 | NUR ---
ON 15 MINUTE CHECKS THROUGHOUT THE NIGHT, PT WAS NOTED TO HAVE SLEPT APPROXIMATELY 8 HOURS OF UNINTERRUPTED SLEEP.
--- NOTE | 2018-09-09 07:35 | NUR ---
PHYSICAL THERAPY Patient seen this am for therapy visit and was standing in her room doorway upon therapist arrival. OT educational assistant teacher was present for observation only during VENEER PULLER visit this morning as patient reported no new c/o's at this time. Patient ambulates SBA, > 100' x 1, demonstrating very slow, cautious kenyatta. Patient seemed fairly quiet today with less casual conversation and was also able to take several steps backwards without LOB. Patient returned to activity room awaiting breakfast under [facility] staff Supevervision. Will continue per POC as tolerated, total treatment time 13 minutes. Derrell Segura, VENEER PULLER
--- NOTE | 2018-09-09 07:45 | NUR ---
OT NOTE Pt was seen this A.M. 1:1 for 15 minute OT session with BINDING DYER and nursing staff present for observation only. Upon arrival pt was supine in bed. Pt identified by name and and had no complaints at this time. Pt transferred supine to sit EOB with Pierre for assist with UB. Sit to stand completed from bed level with Pierre due to low surface. Challenged pt's dynamic standing balance needed for increased I and enhanced safety. While weight shifting and crossing midline pt was able to maintain F/F+ standing balance. Then challenged pt's static standing tolerance needed for increased I in self care tasks and functional transfers. Pt was able to tolerate aprox 10 minutes at a time before sitting due to fatigue. Attempted to complete other tasks and pt declined and laid herself back into bed and would not get back up. Pt was left supine in bed with U staff notified. Continue with rec D/C plan to ECF. MELE Shi/Cris
[2018-09-09 07:52] VITALS: BP 117/69
--- NOTE | 2018-09-09 08:00 | NUR ---
Treatment Plan meeting with Dr. Son RN, AT and Contact Center Director. Plan for discharge Thursday. Pt. will return to [facility].
--- NOTE | 2018-09-09 09:22 | NUR ---
SPOKE WITH DR. MORGAN AT [phone] RE; PT ORDERS FOR MACROBID AND CEFTIN FOR UTI PER DR ELAM CEFTIN. CONVERSATION WITNESSED [facility] 2[facility] RN THU WATSON.
--- NOTE | 2018-09-09 11:50 | NUR ---
AM GROUP/EXERCISE AND BRAIN GAMES PT ATTENDED GROUP AND PARTICIPATED IN THE EXERCISES TO THE BEST OF HER ABILITY. PT IS HIGHLY CONFUSED AND TODAY SEEMS "ANGRY" COMPARED TO PREVIOUS DAYS. PT EXHIBITED NO AGITATION OR AGGRESSION DURING GROUP
--- NOTE | 2018-09-09 13:34 | NUR ---
Spoke with Pretty at [facility]. Notified of Plans to discharge Patient tommorow. Transportation arranged with [facility] to transport with grain picker time 1:00 p.m.
--- NOTE | 2018-09-09 14:20 | NUR ---
NO ADVERSE MOODS OR BEHAVIORS NOTED. PT ALERT TO PERSON ONLY, CONFUSION AND SHORT TERM MEMORY DEFICITS NOTED PER PT BASELINE. PT CALM, MOOD IS STABLE. PT PLEASANT WITH STAFF AND PEERS. NO HALLUCINATIONS OR DELUSIONS NOTED. NO SUICIDAL THOUGHTS OR BEHAVIORS NOTED. PT AMBULATORY THROUGHOUT UNIT, GAIT STEADY. PT CONTINENT OF BOWEL AND BLADDER, EPISODES OF INCONTINENCE NOTED, CARE PROVIDED NEEDED. PLAN IS TO MONITOR PT BEHAVIORS ON Q15 MIN SAFETY CHECKS, ENCOURAGE MED COMPLIANCE.
--- NOTE | 2018-09-09 15:32 | NUR ---
PHYSICAL THERAPY CO-SIGN I approve of the Phyical Therapy notes written above. SARITHA HURLEY PT
--- NOTE | 2018-09-09 15:42 | NUR ---
PM GROUP/LEISURE INTERESTS PT ATTENDED GROUP AND PARTICIPATED BY SINGING ALONG WITH MUSIC AND COLORING. PT IS PLEASANTLY CONFUSED. PT EXHIBITED NO AGITATION OR AGGRESSION DURING GROUP.
--- NOTE | 2018-09-09 15:58 | NUR ---
Left Voice Message for Pt. Son Huma Watson to notify of Discharge tommorow.
[2018-09-09 20:00] VITALS: BP 118/86
--- NOTE | 2018-09-10 02:54 | NUR ---
PT ALERT AND PLEASANTLY CONFUSED. ST/LT MEMORY DEFICITS NOTED. REORIENTATION INEFFECTIVE, REMAINS AT BASELINE CONFUSION. MOOD STABLE, PLEASANT, INTERACTIVE. ATE HS SNACK. MEDICATION COMPLIANT WITH NO DIFFICULTIES. NO S/S OF INTERACTING WITH INTERNAL STIMULI. NO DELUSIONAL THOUGHT PROCESS NOTED. DENIES SI/HI, HALLUCINATIONS, OR PAIN. GAIT STEADY WHILE AMBULATING. REDIRECTION NEEDED AT TIMES WHEN WANDERS INTO OTHER PT'S ROOMS. EASILY REDIRECTABLE. ABLE TO VOICE NEEDS WITH NO DIFFICULTIES. NO S/S OF DISTRESS NOTED. RESPIRATIONS EVEN AND UNLABORED ON ROOM AIR. Q15 MINUTE CHECKS MAINTAINED FOR SAFETY.
--- NOTE | 2018-09-10 03:04 | NUR ---
24 HR chart check completed.
[2018-09-10 07:37] VITALS: BP 150/80
--- NOTE | 2018-09-10 07:55 | NUR ---
DR. SMITH ON UNIT TO ASSESS PT, UPDATE PROVIDED.
--- NOTE | 2018-09-10 08:00 | NUR ---
Treatment Plan meeting with Dr. Son RN, AT, and Digital Community Manager. Plan for discharge today. Pt. will return to [facility]. Transportation provided with [facility] to Transport with warehouse order picker time 1:00 p.m.
[2018-09-10] MEDS ORDERED: RIVASTIGMINE TAR3 M1 PO (09:34)
[2018-09-10] MEDS ORDERED: MIRTAZAPINE15 M2 PO (09:34)
[2018-09-10] MEDS ORDERED: MEMANTINE HCL10 MG PO (09:34)
[2018-09-10] MEDS ORDERED: ARIPIPRAZOLE15 MG PO (09:34)
[2018-09-10] MEDS ORDERED: HYDROXYZINE PAM25 M1 PO (09:34)
--- NOTE | 2018-09-10 10:34 | NUR ---
PT ALERT TO PERSON ONLY, CONFUSION AND SHORT TERM MEMOFY DEFICITS NOTED PER PT BASELINE. PT MED COMPLIANT WITHOUT DIFFICULTY, UNABLE TO PROVIDE MED EDUCATION D/T COGNITION. PT PLEASANT AND COOPERTIVE WITH STAFF AND PEERS. NO HALLUCINATIONS OR DELUSIONS NOTED. NO SUICIDAL THOUGHT OR BEHAVIORS NOTED. PT AMBULATORY THROUGHOUT UNIT, GAIT STEADY. PT CONTINENT OF BOWEL AND BLADDER, EPISODES OF INCONTINENCE NOTED, CARE PROVIDED NEEDED. PLAN IS PREPARE PT FOR DISCHARGE LATER TODAY.
--- NOTE | 2018-09-10 11:09 | NUR ---
NURSE TO NURSE REPORT GIVEN TO KRISS AT [facility]. ADVISED OF PICKUP TIME SCHEDULED FOR 1PM.
--- NOTE | 2018-09-10 11:55 | NUR ---
Discharge Paperwork Faxed to [facility].
--- NOTE | 2018-09-10 12:50 | NUR ---
AM GROUP/MUSIC AND LIGHT THERAPY PT WAS PRESENT AT THE START OF GROUP BUT AFTER A FEW MINUTES STATED, "I CAN'T TAKE THIS" AND WALKED OUT OF THE ROOM. PT DID NOT RETURN. PT IS SET TO BE DISCHARGED FROM THE UNIT TODAY
--- NOTE | 2018-09-10 13:08 | NUR ---
PT DISCHARGED [facility]. DISCHARGE PACKET SENT WITH PT.
--- NOTE | 2018-09-10 13:54 | NUR ---
Patient discharged to [facility]. Follow-up will be with Dr Son, visiting psychiatrist. While at [facility], pt's behaviors improved. Pt's anxiety lessened and she was not experiencing difficult behaviors. Pt remained pleasantly confused upon discharge.
--- NOTE | 2018-09-14 08:21 | NUR ---
OCCUPATIONAL THERAPY CO-SIGN I approve of the Occupational Therapy notes written above. RADHA RAMOS OTR/Cris
--- NOTE | 2018-09-14 16:42 | NUR ---
PHYSICAL THERAPY CO-SIGN I approve of the Physical Therapy notes written above. BALBIR RIVAS
== END 2018-09-10 13:10 | DRG 883 ==
LOC: 3N 16:50
PROVIDERS: ADMIT Psychiatry & Neurology Psychiatry
DX: F63.81 Intermittent explosive disorder (principal); F02.81 Dementia in other diseases classified elsewhere, unspecified severity, with behavioral disturbance; G30.9 Alzheimer's disease, unspecified; F33.3 Major depressive disorder, recurrent, severe with psychotic symptoms; L89.151 Pressure ulcer of sacral region, stage 1; E11.69 Type 2 diabetes mellitus with other specified complication; F41.9 Anxiety disorder, unspecified; G47.00 Insomnia, unspecified; I10 Essential (primary) hypertension; E78.5 Hyperlipidemia, unspecified; E55.9 Vitamin D deficiency, unspecified; F17.219 Nicotine dependence, cigarettes, with unspecified nicotine-induced disorders; Z88.2 Allergy status to sulfonamides; Z88.7 Allergy status to serum and vaccine; Z88.8 Allergy status to other drugs, medicaments and biological substances; Z79.82 Long term (current) use of aspirin; Z79.899 Other long term (current) drug therapy; Z79.1 Long term (current) use of non-steroidal anti-inflammatories (NSAID)

== ENCOUNTER 2018-11-18 11:43 | Inpatient (IN) | payer MEDICARE ==
[~2018-11-18] VITALS: Ht 165.1 cm; Wt 86.2 kg
[~2018-11-18 11:43] MED LIST: ARIPIPRAZOLE15 MG PO; ASPIRIN CHEWABL81 MG PO; ATIVAN1 MG PO; CALCI-CHEW500 MG PO; CHLORASEPTIC S1 EACH PO; COZAAR100 MG PO; DULCOLAX STOOL100 M1 PO; HYDROXYZINE PAM25 M1 PO; IMODIUM A-D2 M2 PO; MEMANTINE HCL10 MG PO; MIRALAX POWDER17 G1 PO; MIRTAZAPINE15 M2 PO; NAMENDA XR28 M1 PO; NIACIN500 M5 PO; PUROXCIN 4%-1%1 EACH T; REMERON15 M2 PO; RISPERDAL0.5 MG PO; RISPERDAL1 M1 PO; RIVASTIGMINE TAR3 M1 PO; RIVASTIGMINE TAR6 M1 PO; ROBITUSSIN DM 101 OZ PO; TYLENOL325 M1 PO; VITAMIN B121000 MC1 IM; VITAMIN D50000 UNIT PO; [UNRECOGNIZED DRUG - OTHER] PO
[2018-11-18] MEDS ORDERED: NUED1CAP PO (12:23)
--- NOTE | 2018-11-18 13:30 | NUR ---
VIKA BANERJEE a 73 year old F admitted via wheel chair from the ADMITTING as a voluntary admission BY [facility]. Arrived on unit at 1330. ALLERGIES: BACTRIM AND PNEUMOVAX. Vital signs are: [id number] 113/56. The client signed the following forms with stated understanding: Authorization For The Release of Medical Information, Clothing List, Consent to Voluntary Admission and Hospitalization, Consent and Release Forms/Receipt of Rights, Acknowledgement of Advance Directive Information, Behavioral Health Consent Form, and Informed Consent of Medications. Admitted under the services of Dr. DARIELA CALERO,[employer]. A search was conducted and hazardous articles were removed. Client was oriented to the unit. CHAIM AL
[2018-11-18 13:53] VITALS: BP 113/56
--- NOTE | 2018-11-18 13:54 | NUR ---
DR. SERVIN NOTIFIED OF NEW ADMISSION. PATIENT WILL BE UNDER THE CARE OF DR. SAXENA. MEDICATIONS AND DIAGNOSIS LIST UP TO DATE FOR REVIEW.
[2018-11-18 14:28] VITALS: BP 113/56
--- NOTE | 2018-11-18 15:50 | NUR ---
DR. SMITH ON THE UNIT TO ASSESS PATIENT.
[2018-11-18 20:04] VITALS: BP 111/78
--- NOTE | 2018-11-18 21:41 | NUR ---
PATIENT AMBULATING ON UNIT. ALERT TO SELF. LT/ST MEMORY IMPAIRED. DOES NOT FOCUS WELL. WONDERING IN AND OUT OF OTHER'S ROOMS AND DINING ROOM. DID STAY IN BED ONCE TAKEN THERE. WAS TOILETED BUT DID NOT VOID. MED COMPLIANT WITH MUCH ENCOURAGEMENT. HAS BEEN PLEASANT WITHOUT AGGRESSION.
--- NOTE | 2018-11-18 22:36 | NUR ---
24 HR chart check completed.
--- NOTE | 2018-11-19 06:02 | NUR ---
PT SLEPT OVER 8 HOURS WITHOUT INTERRUPTION.
[2018-11-19 06:51] LABS: BASO % 0.8 % (0.0-1.0); EOS # 0.3 10*3/uL (0.0-0.4); HEMOGLOBIN 12.3 g/dl (12.0-16.0); LYMPH # 1.5 10*3/uL (1.3-4.4); LYMPH % 37.1 % (27.0-41.0); MEAN CELL VOLUME 84.9 fl (81.0-99.0); MEAN CORPUSCULAR HGB 28.2 pg (27.0-31.0); MEAN CORPUSCULAR HGB CONC 33.2 g/dl (33.0-37.0); MONO # 0.5 10*3/uL (0.1-1.0); MONO % 12.3 % (3.0-9.0); NEUT # 1.7 10*3/uL (2.3-7.9); NEUT % 42.5 % (47.0-73.0); PLATELET COUNT AUTOMATED 124 10*3/uL (130-400); RED BLOOD COUNT 4.36 10*6/uL (4.10-5.10); RED CELL DISTRI WIDTH 13.2 % (0-14.5)
[2018-11-19 07:18] LABS: ALBUMIN 3.3 gm/dl (3.1-4.5); ALKALINE PHOSPHATASE 60 U/L (45-117); BUN 28 mg/dl (7-24); CHLORIDE 106 mmol/L (98-107); CHOLESTEROL 186 mg/dL (<200); CREATININE 0.98 mg/dL (0.55-1.02); HDL CHOLESTEROL 50 mg/dl (40-60); LDL CHOLESTEROL 118 mg/dL (9-159); POTASSIUM 3.6 mmol/L (3.5-5.1); SGOT/AST 26 IU/L (3-35); SGPT/ALT 23 U/L (12-78); SODIUM 137 mmol/L (136-145); TOTAL PROTEIN 6.8 gm/dL (6.4-8.2); TRIGLYCERIDES 92 mg/dl (<150); VLDL CHOLESTEROL 18 mg/dL (6-40)
[2018-11-19 07:51] LABS: VITAMIN D, 25-HYDROXY 47.9 ng/mL (30-100)
--- NOTE | 2018-11-19 08:00 | NUR ---
Treatment Plan meeting with Dr. Son RN, AT, SW and Residential Instructor. Plan for discharge next week. Pt. came to [facility] [place]. Will reach out to facility today to discuss discharge Planning.
[2018-11-19 08:13] VITALS: BP 123/76
--- NOTE | 2018-11-19 08:22 | NUR ---
PHYSICAL THERAPY Nursing screen received and chart reviewed. Physical therapy order received. Thank you. Marissa Godinez,PT,DPT
--- NOTE | 2018-11-19 08:24 | NUR ---
Nursing screen and occupational therapy referral received. Thank you. Coco Vigil OTR/l
--- NOTE | 2018-11-19 08:31 | NUR ---
THIS NURSE SPOKE TO NURSE AT [facility] TO REQUEST ALL PSYCHIATRIC NOTES. VERIFIED FAX NUMBER WITH NURSE. SPOKE TO LOG LOADER OF ADMISSIONS TO VERIFY IF VIKA WAS GOING TO BE ACCEPTED BACK. LOG LOADER STATED "YES, WE WILL BE ACCEPTING HER BACK".
--- NOTE | 2018-11-19 09:02 | NUR ---
DR SMITH ON UNIT TO ASSESS PT
--- NOTE | 2018-11-19 10:27 | NUR ---
Spoke with Sarah Physicians Assistant at [facility] [place]. Pt. is [facility] at facility and will return at discharge. Clinical Updates faxed to Annet[facility] at [place] Attn: Sarah [phone].
--- NOTE | 2018-11-19 11:19 | NUR ---
P: CONFUSION I: REORIENT PT WHEN NEEDED. PROVIDE 1:1 FOR EMOTIONAL SUPPORT. ENCOURAGE MEDICATION COMPLAINCE. ENCOURAGED PT TO ATTEND GROUPS. R: MEDICATION COMPLIANT WITHOUT DIFFICULTY. PT PACING HALLWAY. ENCOURAGED PT TO REST. PT CONTINUED TO PACE WILLETT. PT REFUSED GRUOPS P: CONTINUE TO ENCOURAGE MEDICATION COMPLIANCE. SEE [facility] FLOWSHEET FOR SPECIFIC MONITORING. A&O TO SELF ONLY. SEE [facility] FLOWSHEET FOR SPECIFIC MONITORING.
--- NOTE | 2018-11-19 11:39 | NUR ---
PHYSICAL THERAPY Physical therapy screen complete. Patient is independent in room and throughout hallways. No PT needs at this time. Thank you, Khalida Godinez, SPT Marissa Godinez,PT,DPT
--- NOTE | 2018-11-19 11:40 | NUR ---
AM GROUP PT DID NOT ATTEND MORNING GROUP THERAPY. PT AMBULATED THE WILLETT WITH A PASTE MIXER LIQUID
--- NOTE | 2018-11-19 11:46 | NUR ---
Occupational Therapy referral received and screen completed. Patient ambulates independently on the 3N unit. She has a flat affect and does not initiate conversation. She walks with a slow steady pattern. SHe is able to perform self care with supervision and verbal cues. Her memory is poor regarding prior level and orientation. At this time no further OT indicated. Recommend 24 hr supervision and assist upon d/c. Thank you. Coco Vigil OTR/L
--- NOTE | 2018-11-19 13:38 | NUR ---
Pt wandering ellison this AM, smiling as she was walking. When pt spoke to this comic writer, pt's communication was nonsensical.
--- NOTE | 2018-11-19 15:34 | NUR ---
PM GROUP PT SAT IN AFTERNOON GROUP THERAPY LONG ENOUGH FOR A CASING FINISHER AND STUFFER TO GIVE HER A MANICURE. WHEN STUDENTS LEFT, PT BEGAN WALKING THE WILLETT. PT EXHIBITED NO AGITATION OR AGGRESSION WHILE IN GROUP
[2018-11-19 19:37] VITALS: BP 123/78
--- NOTE | 2018-11-19 23:11 | NUR ---
24 HR chart check completed.
--- NOTE | 2018-11-20 01:15 | NUR ---
P-CONFUSION, PERSONAL SPACE ISSUES I-REDIRECT, PROVIDE SHORT VERBAL INTERVENTION, REORIENT, ADMINISTER MEDICATIONS, MONITOR SLEEP, MAINTAIN ELOPEMENT PRECAUTIONS R-PT IS CONFUSED. ALERT TO PERSON ONLY. HAS MADE NO ATTEMPTS TO LEAVE THE UNIT BUT FREQUENTLY WANDERS IN THE HALLWAY & FOLLOWS STAFF & PEERS. REDIRECTED FOR PERSONAL SPACE ISSUES. HAS TO HAVE FREQUENT REMINDERS. HAS BEEN MOSTLY QUIET. BIZARRE AT THE BEGINNING OF THE SHIFT & WAS STANDING IN THE HALLWAY FACING THE WALL WHILE CRYING & TALKING TO NO ONE. WOULD NOT ELABORATE WHY SHE WAS UPSET. COMPLIANT WITH MEDS. P-CONTINUE TO MONITOR & PROVIDE WITH PHYSICAL ASSISTANCE & EMOTIONAL SUPPORT NEEDED.
--- NOTE | 2018-11-20 05:55 | NUR ---
PT HAS SLEPT PAST 2144
[2018-11-20 07:38] VITALS: BP 115/80
--- NOTE | 2018-11-20 10:09 | NUR ---
ALERT TO PERSON WITH CONFUSION AND MEMORY DEFICITS NOTED. FALL PRECAUTION AND ELOPEMENT/WANDER PRECAUTION MAINTAINED. Q15 MINUTE SAFETY CHECKS MAINTAINED. INCREASED ANXIETY NOTED. NO HALLUCINATIONS OR DELUSIONS NOTED. NO SI/HI NOTED. MEDICATION COMPLIANT WITHOUT DIFFICULTY. HYGIENE CARE PROVIDED WHEN NEEDED. SEE [facility] FLOWSHEET FOR SPECIFIC MONITORING.
--- NOTE | 2018-11-20 12:40 | NUR ---
AM/BINGO/ART PT ATTENDED AND PARTICIPATED TO BEST OF PT ABILITY ALTHOUGH PT CONFUSED, PT ABLE TO COLOR A PICTURE. PT DID NOT BECOME ASSAULTIVE AT THIS TIME AND WILL CONTINUE TO ATTEND AND PARTICIPATE TO BEST OF PT ABILITY.
--- NOTE | 2018-11-20 15:55 | NUR ---
PM/MUSIC/PAINTING PT UNABLE TO ATTEND AT THIS TIME DUE TO LEVELS OF CONFUSION. PT IN QUIET ROOM IN KRISHNA CHAIR AT THIS TIME. PT WILL ATTEND AND BE ENCOURAGED TO PARTICIPATE TO BEST OF PT ABILITY IN FUTURE GROUP SESSIONS.
[2018-11-20 19:24] VITALS: BP 130/84
--- NOTE | 2018-11-20 22:20 | NUR ---
24 HR chart check completed.
--- NOTE | 2018-11-20 22:37 | NUR ---
P-CONFUSION, PERSONAL SPACE ISSUES I-REDIRECT, PROVIDE SHORT VERBAL INTERVENTION, REORIENT, ADMINISTER MEDICATIONS, MONITOR SLEEP, MAINTAIN ELOPEMENT PRECAUTIONS R-PT IS CONFUSED. ALERT TO PERSON ONLY. HAS MADE NO ATTEMPTS TO LEAVE THE UNIT BUT FREQUENTLY WANDERS IN THE HALLWAY & FOLLOWS STAFF & PEERS. REDIRECTED FOR PERSONAL SPACE ISSUES. HAS TO HAVE FREQUENT REMINDERS. HAS BEEN MOSTLY QUIET. COMPLIANT WITH MEDS. P-CONTINUE TO MONITOR & PROVIDE WITH PHYSICAL ASSISTANCE & EMOTIONAL SUPPORT NEEDED.
--- NOTE | 2018-11-21 06:11 | NUR ---
PT HAS SLEPT PAST 2144
[2018-11-21 08:33] VITALS: BP 126/78
--- NOTE | 2018-11-21 11:06 | NUR ---
PT TEARFUL. STATED SHE WAS IN PAIN ALL OVER. PRN TYLENOL 650MG GIVEN PRESCRIBED AT THIS TIME. WILL MONITOR EFFECTIVENESS OF MEDICATION. PT UNABLE TO RATE PAIN DUE TO COGNITIVE IMPAIRMENT.
--- NOTE | 2018-11-21 14:33 | NUR ---
PT PACING HALLWAYS, TEARFUL, RESTLESS, COMBATIVE WITH HOC THROUGHOUT THE DAY. WALKING WITH EYES CLOSED AND RUNNING INTO CHAIRS. PT PLAVED IN KRISHNA CHAIR HOWEVER CONTINUES TO BE RESTLESS AND TEARFUL STATING SOMEBODY PLEASE HELP ME. 1:1 PROVIDED FOR THERAPEUTIC COMMUNICATION. PT TOILETED AND OFFERED DRINKS AND FOOD. NONE OF THE INTERVENTIONS HAVE BEEN EFFECTIVE. PRN ATIVAN PO GIVEN AT THIS TIME TO DECREASE ANXIETY AND PROMOTE REST. WILL MONITOR EFFECTIVENESS OF MEDICATION.
--- NOTE | 2018-11-21 16:45 | NUR ---
ATIVAN PO INEFFECTIVE. PT CONTINUES TO YELL OUT AND IS RESTLESS.
[2018-11-21 20:03] VITALS: BP 128/80
--- NOTE | 2018-11-21 21:45 | NUR ---
24 HR chart check completed.
--- NOTE | 2018-11-21 23:36 | NUR ---
P-CONFUSION, PERSONAL SPACE ISSUES I-REDIRECT, PROVIDE SHORT VERBAL INTERVENTION, REORIENT, ADMINISTER MEDICATIONS & DO MOUTH CHECKS AFTERWARDS. MONITOR SLEEP, MAINTAIN ELOPEMENT PRECAUTIONS R-PT IS CONFUSED. ALERT TO PERSON ONLY. HAS MADE NO ATTEMPTS TO LEAVE THE UNIT BUT FREQUENTLY WANDERS IN THE HALLWAY & FOLLOWS STAFF & PEERS. REDIRECTED FOR PERSONAL SPACE ISSUES. HAS TO HAVE FREQUENT REMINDERS. HAS BEEN MOSTLY QUIET. NOTED TO CHEEK MEDS & PROMPTED TO SWALLOW THEM SEVERAL TIMES. WALKED UP TO DOOR BY NURSES STATION & FACED THE WALL PUTTING HERSELF IN THE CORNER & SPIT OUT ONE OF HER PILLS. P-CONTINUE TO MONITOR & PROVIDE WITH PHYSICAL ASSISTANCE & EMOTIONAL SUPPORT NEEDED. =
--- NOTE | 2018-11-22 05:41 | NUR ---
PT HAS SLEPT QUIETLY PAST 2300.
[2018-11-22 07:45] VITALS: BP 114/66
--- NOTE | 2018-11-22 08:30 | NUR ---
Treatment Plan meeting with Dr. Son RN, AT, SW and Magneto Specialist. Plan for discharge at the end of the week, possible beginning of next week. Pt. will return to [facility].
--- NOTE | 2018-11-22 11:53 | NUR ---
AM GROUP PT WAS PRESENT FOR MORNING GROUP THERAPY BUT IS UNABLE TO PARTICIPATE DUE TO COGNITIVE IMPAIRMENT. PT WAS VERY ANXIOUS AND TEARFUL STATING, "I DON'T KNOW WHY I'M SO SAD" OTHER SPEECH IS NONSENSICAL. PT ROCKS IN HER SEAT AND WRINGS HER HANDS. PT DID NOT EXHIBIT ANY AGGRESSIVE BEHAVIORS WHILE IN GROUP.
--- NOTE | 2018-11-22 15:47 | NUR ---
PM GROUP PT WAS PRESENT FOR AFTERNOON GROUP THERAPY AND WAS VERY AGITATED AT THE TRAY BEING LOCKED ON THE KRISHNA CHAIR. PT MADE SEVERAL ATTEMPTS TO REMOVE IT AND WAS "RATTLING" IT TO THE POINT OF DISRUPTION OF THE GROUP. PT WAS MOVED CLOSER TO THIS PAPER CUTTER OPERATOR AND CALMED. PT WAS GIVEN WATER AND HAND HELD UNTIL PT FELL ASLEEP. PT WAS STILL IN KRISHNA CHAIR WITH TRAY LOCKED ON WHEN THIS PAPER CUTTER OPERATOR LEFT GROUP. PT EXHIBITED NO AGITATION OR AGGRESSION WITH THE EXCEPTION OF THE TRAY.
[2018-11-22 19:35] VITALS: BP 116/65
--- NOTE | 2018-11-22 20:41 | NUR ---
P-CONFUSION, PT WANDERING HALLWAY, INTERMITTENTLY PUSHING ON DOORS. I-PRESENT REALITY AND REDIRECT NEEDED. PROVIDE 1:1 WITH EMOTIONAL SUPPORT. ENCOURAGE MEDICATION COMPLIANCE AND EDUCATE. MAINTAIN ELOPEMENT PRECAUTIONS. MONTIOR SLEEP. R-PATIENT ALERT AND ORIENTED TO SELF, CONFUSED PER BASELINE. PT CONTINUES TO WANDER THROUGHOUT UNIT, CALM, EASILY REDIRECTED NEEDED. NO AGITATION OR AGGRESSION NOTED AT THIS TIME. PT UNRECEPTIVE TO REALITY PRESENTATION, LIMITED VERBALIZATION DURING INTERACTIONS, ALL NEEDS ANTICIPATED BY STAFF. PT MEDICATION COMPLIANT WITHOUT DIFFICULTY, UNABLE TO EDUCATE DUE TO COGNITION. P-CONTINE TO PRESENT REALITY DURING INTERACTIONS, REDIRECT NEEDED. PROVIDE 1:1 WITH EMOTIONAL SUPPORT. ENCOURAGE MEDCIATION COMPLIANCE AND EDUCATE. MAINTAIN ELOPEMENT PRECAUTIONS AND Q 15 MIN SAFETY CHECKS.
--- NOTE | 2018-11-23 04:17 | NUR ---
24 HOUR CHART CHECK COMPLETED.
--- NOTE | 2018-11-23 06:57 | NUR ---
PATIENT OBSERVED ON Q 15 MIN CHECKS TO HAVE SLEPT APPROX 7 HOURS WITH NO AWAKENINGS OR SIGNS AND SYMPTOMS OF DISTRESS NOTED.
[2018-11-23 07:40] VITALS: BP 143/78
--- NOTE | 2018-11-23 11:54 | NUR ---
AM GROUP PT IS UNABLE TO ATTEND OR PARTICIPATE IN GROUP THERAPY AT THIS TIME DUE TO COGNITIVE IMPAIRMENT.
--- NOTE | 2018-11-23 18:36 | NUR ---
PATIENT IS ALERT AND ORIENT TO SELF WITH CONFUSION; LONG/SHORT TERM MEMORY DEFICITS. NO VOICED STATEMENT OF HI/SI OR PAIN. NO RESPONSE TO INTERNAL STIMULI. NO COMPLAINTS OF PAIN. MEDICATION COMPLIANT. Q 15 MINUTE SAFETY CHECKS. 1-2 PERSON ASSIST WITH ACTIVITIES OF DAILY LIVING, INCONTINENT OF BOWEL AND BLADDER, AMBULATED IN HALLWAY WITH EYES CLOSED. ASSISTED IN KRISHNA CHAIR FOR COMFORT. SET UP FOR MEALS, INTAKES ARE GOOD WITH ADEQUATE FLUIDS. CONTINUE TO MONITOR FOR AGGRESSION AND EXIT SEEKING. PROVIDE ONE ON ONE AND REDIRECTION NEEDED.
[2018-11-23 20:00] VITALS: BP 122/75
--- NOTE | 2018-11-23 20:41 | NUR ---
EVENING/DISCUSSION/RELAXTION PT RESTING AT THIS TIME THEREFORE DID NOT ATTEND GROUP. PT WILL BE ENCOURAGED TO ATTEND AND PARTICIPATE IN FUTRUE GROUP SESSIONS TO BEST OF PT6 ABILITY IN FUTURE GROUP SESSIONS.
--- NOTE | 2018-11-24 04:33 | NUR ---
POOR SLEEP ALL NIGHT. SLEPT LESS THAN 2 HOURS. 24 HR chart check completed.
--- NOTE | 2018-11-24 08:30 | NUR ---
Treatment Plan meeting with Dr. Son RN, AT, SW and Electrical Foreman. Plan for discharge next week. Pt. will return to [facility] [place].
[2018-11-24 08:51] VITALS: BP 128/57
--- NOTE | 2018-11-24 15:04 | NUR ---
SPOKE WITH DR SERVIN AT [phone] RE: PT SHOUDLDER/ARM PAIN. VERBAL ORDERS RECEIVED FOR SHOULDER [address] SERVIN
--- NOTE | 2018-11-24 15:04 | NUR ---
HOC COMPLETED AND PT WAS NOTED TO BE GUARDING LEFT ARM IF IN PAIN. THIS NURSE ASSESSED PT AND PT CONTINUED TO GUARD LEFT ARM.
--- NOTE | 2018-11-24 15:35 | NUR ---
PM GROUP/TEAR BOTTLES PT WAS PRESENT FOR AFTERNOON GROUP THERAPY SLEEPING RECLINED IN A KRISHNA CHAIR. PT IS UNABLE TO PARTICIPATE IN GROUP THERAPY AT THIS TIME DUE TO COGNITIVE IMPAIRMENT
[2018-11-24 19:56] VITALS: BP 133/66
--- NOTE | 2018-11-24 21:55 | NUR ---
24 HR chart check completed.
--- NOTE | 2018-11-25 05:37 | NUR ---
PT HAS SLEPT QUIETLY PAST 2129
--- NOTE | 2018-11-25 06:27 | NUR ---
PT MEDICATED WITH 2 TYLENOL AT THIS TIME FOR C/O LEFT ARM PAIN.
[2018-11-25 08:00] VITALS: BP 108/65
--- NOTE | 2018-11-25 08:45 | NUR ---
Patient resting quietly with no c/o discomfort. Respirations easy and regular. Vital signs stable. No overt distress. ELIZABETH SANCHEZ
--- NOTE | 2018-11-25 10:15 | NUR ---
DR. SMITH ON FLOOR TO ASSESS PT.
--- NOTE | 2018-11-25 10:30 | NUR ---
Dr. Son Met with Nursing Staff this a.m. for treatment Plan meeting. Plan for discharge is next week with return to [facility] [place].
--- NOTE | 2018-11-25 11:56 | NUR ---
AM GROUP/EXERCISE PT WAS PRESENT FOR MORNING GROUP THERAPY RECLINED IN A KRISHNA CHAIR SLEEPING. PT DID NOT WAKE DURING GROUP
[2018-11-25 12:03] LABS: ALBUMIN 3.1 gm/dl (3.1-4.5); ALKALINE PHOSPHATASE 63 U/L (45-117); BUN 27 mg/dl (7-24); CHLORIDE 105 mmol/L (98-107); CREATININE 0.74 mg/dL (0.55-1.02); POTASSIUM 3.7 mmol/L (3.5-5.1); SGOT/AST 21 IU/L (3-35); SGPT/ALT 22 U/L (12-78); SODIUM 135 mmol/L (136-145); TOTAL PROTEIN 7.4 gm/dL (6.4-8.2)
--- NOTE | 2018-11-25 14:39 | NUR ---
STRAIGHT CATH PERFORMED BY PIPE TESTING TECHNICIAN UNDER STERILE PROCEDURE. URINE OBTAINED FOR UA SHEILA, YELLOW CLOUDY. PT TOLERATED WELL.
[2018-11-25 14:47] LABS: BILIRUBIN NEGATIVE (NEGATIVE); BLOOD TRACE-INTACT (NEGATIVE); CLARITY SL CLOUDY (CLEAR); COLOR YELLOW (YELLOW); GLUCOSE NEGATIVE (NEGATIVE); KETONE NEGATIVE (NEGATIVE); LEUKO ESTERASE 2+ (NEGATIVE); NITRITE POSITIVE (NEGATIVE); UROBILINOGEN 0.2 E.U./dl (0.2-1.0)
[2018-11-25 15:07] LABS: BACTERIA 3+; WBC TNTC wbc/hpf (0-5)
--- NOTE | 2018-11-25 15:34 | NUR ---
PM GROUP/PAINTING AND CARDS PT IS UNABLE TO PARTICIPATE IN GROUP THERAPY AT THIS TIME DUE TO COGNITIVE IMPAIRMENT. PT SAT IN CHAIR, ROCKED AND WAS DISTRAUGHT. PT COULD NOT BE COMFORTED
--- NOTE | 2018-11-25 17:35 | NUR ---
DR. SERVIN MADE AWARE OF PATIENT UA RESULTS
--- NOTE | 2018-11-25 17:44 | NUR ---
PT DROWSY FOR MAJORITY OF SHIFT. COMBATIVE WITH HOC. PT ASSESSED FOR MOOD, AFFECT. AM KLONOPIN HELD. DR. LYLE MADE AWARE OF PT'S CURRENT DROWSINESS. ATTEMPTED TO AROUSE PT MULTIPLE TIMES, PT BECOMES IRRITABLE. PT STATED "I'LL KILL YOU, B*TCH" DURING HOC, REDIRECTED. MEDICATIONS ADMINISTERED PER ORDERS. PT'S MOOD IS ANGRY, IRRITABLE. AFFECT IS FLAT. DR. LYLE DECREASED KLONOPIN FREQUENCY. ORDERED LABWORK. PT AROUSES TO VERBAL AND TACTILE STIMULATION. PT IS REDIRECTED, AFTER VERBAL SHOUT, PT BECAME TEARFUL, CALMS WITH 1:1 AND EMOTIONAL SUPPORT. PT MEDICATION COMPLIANT WIHTOUT DIFFICULTY. WILL CONTINUE TO ASSESS PT'S MOOD AND REDIRECT APPROPRIATE. WILL PROVIDE EMOTIONAL SUPPORT APPROPRIATE. WILL PROMOTE REST AT NIGHT AND ALERTNESS T/O DAY. WILL ENCOURAGE CONTINUED MEDICATION COMPLIANCE.
[2018-11-25 20:00] VITALS: BP 119/67
--- NOTE | 2018-11-25 23:00 | NUR ---
P-AGITATION, CONFUSION. I-REDIRECTION WITH THERAPEUTIC INTERVENTIONS AND PRESENT REALITY. EDUCATE AND ENCOURAGE MEDICATION COMPLIANCE R-PATIENT AGGRESSIVE AND ATTEMPTING TO STRIKE OUT AT STAFF INTERMITTENTLY THROUGHOUT SHIFT P-CONTINUE TO ENCOURAGE MEDICATION COMPLIANCE, CONTINUE TO PRESENT REALITY, ENCOURAGE GROUP THERAPY WHILE AWAKE
[2018-11-26 08:00] VITALS: BP 127/63
--- NOTE | 2018-11-26 08:30 | NUR ---
Treatment Plan meeting with Dr. Son, RN, AT, and Binder Folder Operator. Plan for discharge next week. Pt. will return to [facility] [place].
--- NOTE | 2018-11-26 08:37 | NUR ---
Patient resting quietly with no c/o discomfort. Respirations easy and regular. Vital signs stable. No overt distress. ELIZABETH SANCHEZ
--- NOTE | 2018-11-26 10:52 | NUR ---
Spoke with Dianna crandall [facility] [place]. Advised of plans to discharge next week. Clinical Updates faxed to facility Attn: Dianna [phone].
--- NOTE | 2018-11-26 11:41 | NUR ---
AM GROUP/LEISURE INTERESTS PT DID NOT ATTEND MORNING GROUP THERAPY. PT WAS IN BED RESTING.
--- NOTE | 2018-11-26 18:12 | NUR ---
PT DROWSY THIS SHIFT. COMBATIVE WITH HOC, ATTEMPTING TO HIT AND KICK. PT REDIRECTED AND PROVIDED WITH EMOTIONAL SUPPORT. MEDICATIONS GIVEN PER ORDER. PT REDIRECTED WITH SOME DIFFICULTY. RECEPTIVE TO EMOTIONAL SUPPORT. PT CALMS AFTER CARE COMPLETED. PT MEDICATION COMPLIANT WITHOUT DIFFICULTY. WILL CONTINUE TO REDIRECT AND PROVIDE EMOTIONAL SUPPORT APPROPRIATE. WILL ENCOURAGE PT TO TAKE MEDICATIONS PRESCRIBED. Q15 MIN MONITORING PER POLICY.
[2018-11-26 19:26] VITALS: BP 116/75
--- NOTE | 2018-11-26 23:41 | NUR ---
P-TEARFUL, CONFUSION. I-REDIRECTION WITH THERAPEUTIC INTERVENTIONS AND PRESENT REALITY. EDUCATE AND ENCOURAGE MEDICATION COMPLIANCE R-PATIENT TEARFUL IN DINING AREA AND STATING TO THIS NURSE "I DON'T FEEL GOOD. PATIENT MEDICATION COMPLIANT. PATIENT CONTINENT OF BOWEL BEFORE GOING TO BED. PATIENT STATED " I FEEL BETTER NOW". P-CONTINUE TO ENCOURAGE MEDICATION COMPLIANCE, CONTINUE TO PRESENT REALITY, ENCOURAGE GROUP THERAPY WHILE AWAKE
--- NOTE | 2018-11-27 00:27 | NUR ---
24 HR chart check completed.
--- NOTE | 2018-11-27 06:40 | NUR ---
PATIENT SLEPT 7 HOURS OF UNINTERRUPTED SLEEP THROUGHOUT SHIFT. PATIENT CONTINUES ON ANTIBIOTIC FOR +UTI. NO ADVERSE REACTION. NO COMPLAINTS OF DYSURIA. Q 15 MINUTE CHECKS MAINTAINED
[2018-11-27 08:27] VITALS: BP 122/65
--- NOTE | 2018-11-27 11:25 | NUR ---
DR. MUNOZ ON UNIT TO ASSESS PT, UPDATE PROVIDED.
--- NOTE | 2018-11-27 11:46 | NUR ---
AM/EXERCISE/REMINISCE/ART PT SLEEPING IN ROOM AT THIS TIME. DUE TO LEVELS OF CONFUSION/COGNITION PT UNABLE TO PARTICIPATE. PT WILL CONTINUE TO BE ENOCURAGED TO ATTEND FUTURE GROUP SESSIONS WHEN AWAKE.
--- NOTE | 2018-11-27 14:16 | NUR ---
NO ADVERSE MOODS OR BEHAVIORS NOTED THIS SHIFT. PT ALERT TO PERSON ONLY, CONFUSION AND SHORT TERM MEMORY DEFICITS NOTED PER PT BASELINE. PT MED COMPLIANT WITHOUT DIFFICULTY, UNABLE TO PROVIDE MED EDUCATION D/T COGNITION. NO HALLUCINATIONS OR DELUSIONS NOTED. NO SUICIDAL THOUGHTS OR BEHAAVIORS NOTED. PT UP TO A GERICHAIR D/T INABILITY TO AMBULATE INDEPENDENTLY. PT INCONTINENT OF BOWEL AND BLADDER, CARE PROVIDED NEEDED. PLAN IS TO MONITOR PT BEHAVIORS ON Q15 MIN SAFETY CHECKS, ENCOURAGE MED COMPLIANCE, PROVIDE EMOTIONAL SUPPORT AND 1:1 FOR PT TO VOICE FELINGS.
--- NOTE | 2018-11-27 15:54 | NUR ---
PM/GAMES/MUSIC PT ATTENDED BUT SLEPT IN RECLINER ENTIRE TIME. PT WILL CONTINUE TO ATTEND GROUP AND BE ENCOURAGED TO PARTICIPATE TO BEST OF PT ABILITY.
[2018-11-27 19:48] VITALS: BP 135/69
--- NOTE | 2018-11-28 00:06 | NUR ---
P-CONFUSION, ANXIETY I-REDIRECT, PROVIDE SHORT VERBAL INTERVENTION, REORIENT, ADMINISTER MEDICATIONS MONITOR SLEEP, R-PT IS CONFUSED. ALERT TO PERSON ONLY. MILD ANXIETY & TEARFUL AT TIMES P-CONTINUE TO MONITOR & PROVIDE WITH PHYSICAL ASSISTANCE & EMOTIONAL SUPPORT NEEDED.
--- NOTE | 2018-11-28 00:28 | NUR ---
24 HR chart check completed.
--- NOTE | 2018-11-28 05:31 | NUR ---
PT SLEPT QUIETLY PAST 2229
[2018-11-28 08:06] VITALS: BP 143/69
--- NOTE | 2018-11-28 11:39 | NUR ---
DR. MUNOZ ON UNIT TO ASSESS PT, UPDATE PROVIDED.
--- NOTE | 2018-11-28 12:08 | NUR ---
AM/ BRAIN GAMES/MUSIC PT ATTENDED BUT SLEPT IN RECLINER ENTIRE GROUP. PT WILL CONTINUE TO ATTEND BUT UNABLE TO PARTICIPATE DUE TO LEVELS OF CONFUSION/COGNITION.
[2018-11-28 19:29] VITALS: BP 133/65
--- NOTE | 2018-11-28 21:55 | NUR ---
24 HR chart check completed.
--- NOTE | 2018-11-28 23:58 | NUR ---
P-CONFUSION, ANXIETY, AGITATION, I-REDIRECT, PROVIDE SHORT VERBAL INTERVENTION, REORIENT, ADMINISTER MEDICATIONS MONITOR SLEEP, R-PT IS CONFUSED. ALERT TO PERSON ONLY. MILD ANXIETY & TEARFUL AT TIMES. BECAME AGITATED WITH HANDS ON CARE & STRUCK OUT AT STAFF SEVERAL TIMES. MEDICATED WITH GEODON 10 MG IM @ 2320 WHICH HAS BEEN EFFECTIVE & PT HAS SLEPT PAST 2345. P-CONTINUE TO MONITOR & PROVIDE WITH PHYSICAL ASSISTANCE & EMOTIONAL SUPPORT NEEDED.
--- NOTE | 2018-11-29 06:12 | NUR ---
PT HAS CONTINUED TO SLEEP QUIETLY. INCONTINENT OF URINE.
[2018-11-29 08:01] VITALS: BP 122/62
--- NOTE | 2018-11-29 11:34 | NUR ---
AM GROUP PT DID NOT ATTEND MORNING GROUP THERAPY. PT WAS SLEEPING RECLINED IN A KRISHNA CHAIR IN A QUIET ROOM. PT IS UNABLE TO PARTICIPATE AT THIS TIME DUE TO COGNITIVE IMPAIRMENT
--- NOTE | 2018-11-29 13:47 | NUR ---
Shift chart check completed.
--- NOTE | 2018-11-29 15:04 | NUR ---
P- ALERT TO PERSON ONLY; CONFUSION AND ST/LT MEMORY DEFICITS NOTED. INCREASED CONFUSION WITH HANDS ON CARE; CURSING, IRRITABLE, AND TEARFUL AT THESE TIMES. TEARFUL EPISODES AT TIMES. I- ASSESS MOOD, ORIENTATION, SI/HI, HALLUCINATIONS, DELUSIONS, OR PAIN. REORIENT FREQUENTLY WHEN CONFUSION IS NOTED. ONE TO TWO ASSIST WITH TRANSFER, CARE, ADLS, AND TOILETING DUE TO INCREASED CONFUSION AT THESE TIMES AND UNSTEADY GAIT. ENCOURAGE TO STAY AWAKE DURING THE DAY. ENCOURAGE TO ATTEND/PARTICIPATE IN GROUP THERAPIES DUE TO INCREASED CONFUSION. ENCOURAGE INTERACTION WITH PEERS AND STAFF. PROVIDE WITH ACTIVITIES. PROVIDE WITH MEDICATIONS ON TIME WITH EDUCATION ON EACH. 1:1 INTERACTION WITH EMOTIONAL SUPPORT AND VENTILATION OF FEELINGS PROVIDED. PROVIDE WITH FOOD, FLUIDS, AND TOILETING OFTEN. R- REMAINS AT BASELINE CONFUSION EVEN WITH REORIENTATION PROVIDED. MOOD PLEASANT. UNABLE TO ASSESS SI/HI, HALLUCINATIONS, OR PAIN DUE TO COGNITION. NO S/S OF INTERACTING WITH INTERNAL STIMULI. NO S/S OF DELUSIONAL THOUGHT PROCESS NOTED. NO S/S OF DISTRES NOTED. RESPS EVEN AND UNLABORED ON ROOM AIR. MEDICATION COMPIANT. GAIT UNSTEADY AT TIMES. ONE TO TWO ASSIST PROVIDED WITH CARE, ADLS, AND TRANSFERING. INCONTINENT OF BOWEL AND BLADDER. PT BECOMES VERBALLY AGGRESSIVE AND CURSING AT STAFF WHEN ASSISTING WITH CARE DUE TO INCREASED CONFUSION. PT INAPPROPRIATELY TEARFUL AT TIMES. STEP BY STEP INSTRUCTION EFFECTIVE WITH CALMING PATIENT. 1:1 INTERACTION EFFECTIVE IN CALMING PATIENT. PT UNABLE TO ELLABORATE ON WHY PT BECOMES TEARFUL DUE TO COGNITION. EATING AND DRINKING ADEQUATELY. NONSENSICAL RESPONSES TO QUESTIONS. PT NAPPING THROUGHOUT THE DAY. ATTEND GROUP THERAPY. P- REORIENT FREQUENTLY WHEN CONFUSION AND ST/LT MEMORY DEFICITS ARE NOTED. ASSESS MOOD, ORIENTATION, SI/HI, HALLUCINATIONS, DELSUIONS OR PAIN EVERY SHIFT. PROVIDE WITH MEDICATIONS ON TIME WITH EDUCATION ON EACH. ENCOURAGE TO ATTEND/PARTICIPATE IN GROUP THERAPIES. ENCOURAGE INTERACTION WITH PEERS. ONE TO TWO ASSIST WITH ADLS, CARE, TRANSFERING, AND TOILETING DUE TO INCREASED CONFUSION AT THESE TIMES, COGNITION, AND UNSTEADY AT TIMES. 1:1 THERAPEUTIC INTERACTION WITH EMOTIONAL SUPPORT AND VENTILATION OF FEELINGS. PROVIDE WITH FOOD, FLUIDS, AND TOILETING OFTEN. Q15 MINUTE CHECKS MAINTAINED FOR SAFETY.
--- NOTE | 2018-11-29 15:40 | NUR ---
PM GROUP PT WAS PRESENT FOR AFTERNOON GROUP THERAPY AND IS UNABLE TO PARTICIPATE BUT DID LISTEN TO THE MUSIC AND ATTEMPTED TO MAKE CONVERSATION. PT EXHIBITED NO AGITATION OR AGGRESSION WHILE IN GROUP.
[2018-11-29 19:27] VITALS: BP 132/60
--- NOTE | 2018-11-29 20:03 | NUR ---
24 HR chart check completed.
--- NOTE | 2018-11-29 20:32 | NUR ---
EVENING/LEISURE SKILLS PT SITTING IN FRONT OF NURSES STATION TEARFUL. PT ENCOURAGED TO ATTEND GROUP BUT PT CHOSE NOT TO. PT DID COME INTO ACTIVITY ROOM FOR SNACK AND WAS NO LONGER TEARFUL. PT BEGAN WATCHING FOOTBALL GAME. PT WILL CONTINUE TO ATTEND AND BE ENCOURAGED TO PARTICIPATE TO BEST OF PT ABILITY.
--- NOTE | 2018-11-29 21:29 | NUR ---
P-CONFUSION, ANXIETY I-REDIRECT, PROVIDE SHORT VERBAL INTERVENTION, REORIENT, ADMINISTER MEDICATIONS MONITOR SLEEP, R-PT IS CONFUSED. ALERT TO PERSON ONLY. MILD ANXIETY & TEARFUL AT TIMES. COMPLIANT TAKING MEDICATIONS CRUSHED & MIXED IN APPLESAUCE BUT DID STATE. "I'M GOING TO SPIT IT OUT". P-CONTINUE TO MONITOR & PROVIDE WITH PHYSICAL ASSISTANCE & EMOTIONAL SUPPORT NEEDED.
--- NOTE | 2018-11-29 21:43 | NUR ---
PT WAS IN THE DINING ROOM IN A WHEELCHAIR. INTRUSIVE INTO A MALE PEERS SPACE. UNRECEPTIVE TO REDIRECTION. WHEN STAFF PULLED WHEELCHAIR PULLED AWAY FROM MALE PT, PT BEGAN CURSINIG STAFF & CALLING STAFF "BITCHES" STRICKING OUT & SWINGING ARMS & ATTEMPTING TO BITE STAFF. PT REMOVED FROM DINING ROOM. MEDICATED WITH GEODON 10 MG IM @ 2134.
--- NOTE | 2018-11-30 05:48 | NUR ---
GEODON HAS BEEN EFFECTIVE & PT HAS SLEPT QUIETLY PAST 2299.
[2018-11-30 07:38] VITALS: BP 129/76
--- NOTE | 2018-11-30 08:00 | NUR ---
Treatment Plan meeting with Dr. Son RN, AT, SW and R&D Lab Technician. Plan for discharge at the end of the week, beginning of next week. Pt. will return to [facility] [place].
--- NOTE | 2018-11-30 11:05 | NUR ---
Spoke with Sarah [facility] of [place]. Notified of plans to discharge at the end of the week, beginning of next week.
--- NOTE | 2018-11-30 11:15 | NUR ---
Occupational THerapy evaluation completed on 3 with full evaluation to follow. Precautions include 3N unit precautions, fall risk,lethargy,+2 transfer assist, assist w/ all ADLs, high complexity level 30083 via chart review, testing and evaluation. Recommend OT per POC and return to LTC upopn d/c. Thank you. Coco Vigil OTR/L
--- NOTE | 2018-11-30 11:29 | NUR ---
PHYSICAL THERAPY Physical therapy evaluation complete, 3N. Full evaluation/details to follow. Moderate complexity PT evaluation per chart review and evaluation (80621). PT to progress transfers, gait and safety per POC. Recommend return to LTC facility at discharge. Thank you. Marissa Godinez,PT,DPT
--- NOTE | 2018-11-30 11:32 | NUR ---
[facility] GROUP PT DID NOT ATTEMD MORNING GROUP THERAPY. PT WAS SLEEPING RECLINED IN A KRISHNA CHAIR IN A QUIET ROOM
--- NOTE | 2018-11-30 18:46 | NUR ---
PT TEARFUL REDIRECTED, OFFERED 1:1, EMOTIONAL SUPPORT PT RESPONDS WELL TO 1:1, CONTINUES TO BE INTERMITTENTLY TEARFUL. PT DISTRACTABLE AND REDIRECTABLE WILL CONTINUE TO REDIRECT AND PROVIDE EMOTIONAL SUPPORT APPROPRIATE. CONTINUE TO ADMINISTER MEDICATIONS ORDERED. Q 15 MIN MONITORING
[2018-11-30 19:46] VITALS: BP 145/86
--- NOTE | 2018-11-30 19:46 | NUR ---
24 HR chart check completed.
--- NOTE | 2018-11-30 21:56 | NUR ---
P-CONFUSION, ANXIETY I-REDIRECT, PROVIDE SHORT VERBAL INTERVENTION, REORIENT, ADMINISTER MEDICATIONS MONITOR SLEEP, R-PT IS CONFUSED. ALERT TO PERSON ONLY. ANXIOUS & CRYING WITH NO TEARS. WHEN ASKED HOW SHE WAS FEELING, SHE STATED, "UPSET". WHEN ASKED WHY SHE IS UPSET, SHE STATED, "ITS NONE OF YOUR BUSINESS". PT WOULD NOT ELABORATE. COMPLIANT TAKING MEDICATIONS CRUSHED & MIXED IN APPLESAUCE. P-CONTINUE TO MONITOR & PROVIDE WITH PHYSICAL ASSISTANCE & EMOTIONAL SUPPORT NEEDED.
--- NOTE | 2018-12-01 06:19 | NUR ---
PT HAS SLEPT PAST 0100
--- NOTE | 2018-12-01 07:35 | NUR ---
PHYSICAL THERAPY Patient seen this am for therapy visit and was semi reclined in Quiet room Nubia chair upon therapist arrival. OT orthopaedic physician assistant was present for observation only during BABY ATTENDANT visit as patient needed both verbal / tactile cues to fully awaken for treatment. Patient performed sit to stand transfer at rail in hallway, MOD A x 2, tolerating approx 1 minute each trial, CGA during static stand, demonstrating "slouched" upright posture. Patient also ambulated AUTO STRIPER/MIN A along rail, 50' x 1, demonstrating decreased stride and increased fatigue with Nubia chair follow. Patient appeared confused at times and needed v/c to focus on task to improve standing balance. Patient returnd to Nubia chair in activity room, sitting upright at table awaiting breakfast, under [facility] staff Supervision. Will continue per POC as tolerated, total treatment time 15 minutes. Derrell Segura, BABY ATTENDANT
[2018-12-01 07:43] VITALS: BP 131/65
--- NOTE | 2018-12-01 08:00 | NUR ---
Treatment Plan meeting with Dr. Son, RN, AT, SW and Wet Plant Operator. Plan for discharge at the end of the week, beginning of next.
--- NOTE | 2018-12-01 08:00 | NUR ---
OT NOTE Pt was seen this A.M. 1:1 for 15 minute OT session with WOOL HANDLER and nursing staff present for observation only. Upon arrival pt was sitting reclined in the denice chair in the quiet room. Pt identified by name and and had no complaints at this time. Pt was taken out into the hallway where she completed multiple sit to stand transfers from chair level with modA X 2 and use of hand rail for UE support. Challenged pt's static standing tolerance needed for increased I in self care tasks and functional transfers, pt was able to tolerate aprox 2 minutes at a time before sitting due to fatigue. Pt was left sitting upright in the denice chair at the dining room table with body alarm activated for safety and under U staff supervision. Continue with rec D/C plan to return to senior care. MELE Shi/Cris
--- NOTE | 2018-12-01 11:43 | NUR ---
AM GROUP/LEISURE INTERESTS PT WAS PRESENT FOR MORNING GROUP THERAPY BUT REFUSED ANY ACTIVITY OR TO SIT WITH PEERS. PT CHOSE TO SIT AT A TABLE ALONE. PT EXHIBITED NO AGGRESSION OR AGITATION WHILE IN GROUP
--- NOTE | 2018-12-01 15:38 | NUR ---
PM GROUP PT IS UNABLE TO ATTEND OR PARTICIPATE IN GROUP THERAPY AT THIS TIME DUE TO COGNITIVE IMPAIRMENT
[2018-12-01 19:05] VITALS: BP 136/82
--- NOTE | 2018-12-01 19:09 | NUR ---
PT CRYING, NO TEARS. REDIRECTED, OFFERED 1:1, EMOTIONAL SUPPORT PT RESPONDS WELL TO 1:1, CONTINUES TO BE INTERMITTENTLY TEARFUL. PT DISTRACTABLE AND REDIRECTABLE WILL CONTINUE TO REDIRECT AND PROVIDE EMOTIONAL SUPPORT APPROPRIATE. CONTINUE TO ADMINISTER MEDICATIONS ORDERED. Q 15 MIN MONITORING
--- NOTE | 2018-12-01 21:13 | NUR ---
P- ALERT TO PERSON ONLY; CONFUSION AND ST/LT MEMORY DEFICITS NOTED. NONSENSICAL RESPONSES TO INTERACTION. I- ASSESS MOOD, ORIENTATION, SI/HI, HALLUCINATIONS, DELUSIONS OR PAIN. REORIENT FREQUENTLY WHEN CONFUSION IS NOTED. PROVIDE WITH MEDICATIONS ON TIME WITH EDUCATION ON EACH. 1:1 INTERACTION WITH EMOTIONAL SUPPORT PROVIDED. PROVIDE WITH FOOD AND FLUIDS. STANDY BY ASSIST WITH WALKING DUE TO UNSTEADY GAIT AT TIMES. ONE ASSIST WITH ADLS, CARE, AND TOILETING DUE TO INCREASED CONFUSION DURING THESE TIMES. MONITOR SLEEP. R- REMAINS AT BASELINE CONFUSION EVEN WITH REORIENTATION PROVIDED. UNABLE TO ASSESS INTERVIEW QUESTIONS DUE TO NONSENSICAL RESPONSES. MOOD PLEASANT, SMILING WITH INTERACTION WITH STAFF. NO S/S OF INTERACTING WITH INTERNAL STIMULI. NO S/S OF DISTRESS NOTED. NO DELSUIONAL THOUGHT PROCESS NOTED. RESPS EVEN AND UNLABORED ON ROOM AIR. ATE HS SNACK AND DRANK FLUIDS. MEDICATION COMPLIANT WITH NO DIFFICULTIES. PT UTILIZING MARYWALKER DUE TO UNSTEADY GAIT AT TIMES. P- REORIENT FREQUENTLY WHEN CONFUSION IS NOTED. ASSESS MOOD, ORIENTATION, SI/HI, HALLUCINATIONS, DELUSIONS OR PAIN EVERY SHIFT. PROVIDE WITH MEDICATIONS ON TIME WITH EDUCATION ON EACH. PROVIDE WITH FOOD AND FLUIDS. MONITOR SLEEP. ONE ASSIST WITH ADLS, CARE, AND TOILETING DUE TO INCREASED CONFUSION DURING THESE TIMES. FALLING STAR PROGRAM IN PLACE. Q15 MINUTE CHECKS MAINTAINED FOR SAFETY. 1:1 INTERACTION PROVIDED WHEN NECESSARY.
--- NOTE | 2018-12-01 23:28 | NUR ---
24 HR chart check completed.
--- NOTE | 2018-12-02 05:08 | NUR ---
PATIENT MONITORED ON Q15 MINUTE SAFETY CHECKS THROUGHOUT THE NIGHT. PT NOTED TO HAVE SLEPT APPROXIMATELY 7 HOURS THROUGHOUT THE NIGHT WITH ONE AWAKENING.
[2018-12-02 07:26] VITALS: BP 135/69
--- NOTE | 2018-12-02 07:40 | NUR ---
PHYSICAL THERAPY Patient was sitting up EOB this am following OT industrial hire sales assistant treatment and became increasingly agitated when approached by Male participant. Patient repeatedly motioned by hand to get away and refused multiple attmepts for therapy at this time. OT industrial hire sales assistant was present for observation only as patient remained under ROBERT Supervision. Will continue per POC as able. Derrell Segura, STUDENT ACCOUNTS MANAGER
--- NOTE | 2018-12-02 08:00 | NUR ---
OT NOTE Pt was seen this A.M. 1:1 for 30 minute OT session with PUBLIC HEALTH POLICY ANALYST and nursing staff present for observation only. Upon arrival pt was supine in bed. Pt identified by name and and had no complaints at this time. Pt transferred supine to sit EOB with maxA. While sitting EOB pt donned pants with modA. Sit to stand completed from bed level with modA. Challenged pt's static standing tolerance needed for increased I in self care tasks and functional transfers and pt was able to tolerate aprox 2 minutes before sitting due to fatigue. Pt then completed standing pivot transfer from EOB to the denice chair with modA PLATER HOT DIP. Extra time was given throughout session due to slow rate of performance and extra time required for processing commands. Pt was left sitting upright in the denice chair at the dining room table with body alarm activated for safety and under U staff supervision. Continue with rec D/C plan to return to [facility]. MELE Shi/Cris
--- NOTE | 2018-12-02 11:27 | NUR ---
Discharge Plan is for patient to discharge Thursday with return to [facility].
--- NOTE | 2018-12-02 11:44 | NUR ---
AM GROUP PT DID NOT ATTEND MORNING GROUP THERAPY. PT WAS PROPELLING SELF AROUND THE UNIT IN THE [facility]
--- NOTE | 2018-12-02 13:12 | NUR ---
Spoke with pt as she propelled herself in the elliosn while in the merry walker. Pt was nonsensical in speech and appeared anxious. Support provided.
--- NOTE | 2018-12-02 15:52 | NUR ---
PHYSICAL THERAPY CO-SIGN I approve of the Physical Therapy notes written above. BALBIR RIVAS PT,DPT
[2018-12-02 19:18] VITALS: BP 134/72
--- NOTE | 2018-12-02 21:42 | NUR ---
Patient alert to self only with confusion. Patient anxious and tearful at times. Patient compliant with medication without any difficulty. Provided 1:1 for emotional support. Attempted to redirect/reorient when appropriate. Plan to encourage medication compliance and continue to provide for emotional support. Also plan to continue to redirect/reorient when needed/appropriate. Q 15 minute safety checks continued and maintained. See [facility] flowsheet for further documentation.
--- NOTE | 2018-12-03 00:29 | NUR ---
24 HR chart check completed.
--- NOTE | 2018-12-03 05:32 | NUR ---
Patient slept appox. 5 hours throughout shift. Q 15 minute safety check continued and maintained.
--- NOTE | 2018-12-03 07:17 | NUR ---
OT NOTE Attempted to see pt this A.M. for OT session and upon arrival pt was asleep in the denice chair and unable to arouse. Will check back at a later time/date and continue with POC as able. MELE Shi/Cris
[2018-12-03 08:00] VITALS: BP 125/66
[2018-12-03] MEDS ORDERED: CLONAZEPAM0.5 M2 PO (08:28)
[2018-12-03] MEDS ORDERED: RIVASTIGMINE TAR3 M1 PO (08:28)
[2018-12-03] MEDS ORDERED: NEUDEXT PO (08:28)
[2018-12-03] MEDS ORDERED: MIRTAZAPINE30 M2 PO (08:28)
[2018-12-03] MEDS ORDERED: ARTHRITIS PAIN57 GM T (08:28)
[2018-12-03] MEDS ORDERED: MEMANTINE HCL10 MG PO (08:28)
--- NOTE | 2018-12-03 08:30 | NUR ---
Spoke with Sarah at [facility] [place]. Notified of discharge today with greens picker time 11:00 a.m.
--- NOTE | 2018-12-03 08:30 | NUR ---
Treatment Plan meeting with Dr. Son RN, AT, and Graphic Illustrator. Plan for discharge today with return to [facility].
--- NOTE | 2018-12-03 10:53 | NUR ---
NURSE TO NURSE REPORTED GIVEN TO SENIOR CARE.
--- NOTE | 2018-12-03 11:00 | NUR ---
YOHANNES AREVALO PIT MANAGER ON UNIT TO ASSESS PT
--- NOTE | 2018-12-03 11:06 | NUR ---
Discharge Paperwork Faxed to Ayana at [facility].
--- NOTE | 2018-12-03 11:06 | NUR ---
PT OFF UNIT AT THIS TIME. VS WNL. NO ADVERSE MOODS OR BEHAVIORS NOTED. BELONGINGS SENT WITH PATIENT.
--- NOTE | 2018-12-06 08:09 | NUR ---
OCCUPATIONAL THERAPY CO-SIGN I approve of the Occupational Therapy notes written above. RADHA RAMOS OTR/Cris
== END 2018-12-03 11:06 | DRG 883 ==
LOC: 3N 11:43
PROVIDERS: ADMIT Psychiatry & Neurology Psychiatry
DX: F63.81 Intermittent explosive disorder (principal); F02.81 Dementia in other diseases classified elsewhere, unspecified severity, with behavioral disturbance; N39.0 Urinary tract infection, site not specified; F41.9 Anxiety disorder, unspecified; G30.9 Alzheimer's disease, unspecified; E78.5 Hyperlipidemia, unspecified; I10 Essential (primary) hypertension; F48.2 Pseudobulbar affect; E11.9 Type 2 diabetes mellitus without complications; E55.9 Vitamin D deficiency, unspecified; B96.20 Unspecified Escherichia coli [E. coli] as the cause of diseases classified elsewhere; G47.00 Insomnia, unspecified; Z88.2 Allergy status to sulfonamides; Z88.8 Allergy status to other drugs, medicaments and biological substances; Z79.899 Other long term (current) drug therapy; Z88.1 Allergy status to other antibiotic agents; Z79.82 Long term (current) use of aspirin